=== PATIENT | female | born 1975 | race Caucasian/White ===

== ENCOUNTER 2020-04-15 19:05 | Observation (INO) | payer MEDICARE, MEDICAID, SELFPAY ==
[2020-04-15 19:11] VITALS: BP 160/94; PULSE 92; RESP 22; TEMP 36.7; O2SAT 99; BMI 47.0
--- NOTE | 2020-04-15 19:27 | ECG_ITS ---
Measurements Intervals [place] Rate: 88 P: 33 MT: 129 QRS: 49 QRSD: 81 T: 42 QT: 390 QTc: 473 SINUS RHYTHM POSSIBLE LEFT ATRIAL ENLARGEMENT [-0.1mV P WAVE IN V1/V2] LOW QRS VOLTAGE IN PRECORDIAL LEADS [QRS DEFLECTION < 1.0 mV IN CHEST LEADS] Compared to ECG 04/10/2019 12:39:39 Sinus tachycardia no longer present T-wave abnormality no longer present Electronically Signed On 04-16-2020 16:19:37 CDT by Amber Shah M.D. [email or web address]
--- NOTE | 2020-04-15 19:35 | ED_ITS ---
Documented by User: Latoya Traylor MD 04/15/20 23:35 HPI - Abdominal Pain General: Chief Complaint: Abdominal Pain Stated Complaint: rib pain Time Seen by Provider: 04/15/20 19:21 History of Present Illness: HPI narrative: Patient is a 44 year old female presenting with vomiting and diaphoresis all day today. She has had similar episodes in the past - but not so severe or prolonged and she has not had the sweating before. She has had diabetes but no longer is on medication due to a low carb diet. MD elicited complaint: abdominal pain Pertinent past history: gastritis Onset (ago): day(s) (1) Pain Consistency: intermittent Location: Epigastric Severity: severe Associated Symptoms: Reports nausea and vomiting; Denies chills, diarrhea and fever(s) Related Data: Date of Last Menstrual Period: 04/08/20 Review of Systems General: Reports: 10 or more systems reviewed and unremarkable except in HPI and below Const: Reports: fatigue, malaise, night sweats and diaphoresis; Denies: fever(s) or chills Card: Reports: pre-syncope; Denies: chest pain or palpitations Resp: Denies: dyspnea, productive cough or non-productive cough GI: Reports: abdominal pain, nausea and vomiting; Denies: diarrhea : Denies: difficulty voiding or urinary frequency Jakob/Lymph: Denies: easy bruising or easy bleeding PFSH ED PFSH: Family History Other Diabetes Heart disease Social History Smoking and tobacco status: former smoker Second hand smoke exposure: No Smoking risk assessment/counseling performed?: No Alcohol intake: current Alcohol intake frequency: holidays/special occasions only Desire information about alcohol rehabilitation?: No Counseling given: No Desire information about substance/drug rehabilitation?: No Counseling given: No Female Reproductive History: Date of last menstrual period: 04/08/20 Physical Exam Const: COMMON NORMALS: patient oriented x3 and alert GENERAL APPEARANCE: in distress and anxious NUTRITIONAL APPEARANCE: obese morbidly obese HENMT: HEAD & SCALP: normal to inspection FACE & SINUS: normal facial exam Neck/C-Spine: COMMON NORMALS: supple and no JVD Chest: COMMONS NORMALS: normal inspection of the chest Resp: COMMON NORMALS: normal respiratory effort, No retractions, No use of accessory muscles and clear to auscultation bilaterally AUSCULTATION: clear to auscultation bilaterally Cardio: COMMON NORMALS: no JVD, regular rate, regular rhythm and No murmurs present (Cardio) RATE: regular rate RHYTHM: regular rhythm GI: COMMON NORMALS: Normal to inspection, nondistended, normoactive bowel sounds present INSPECTION: Yes normal to inspection AUSCULTATION: Yes Hypoactive bowel sounds present PALPATION: Yes Tenderness to palpation present (GI) Details: RUQ and other (epigastric) Neuro: COMMON NORMALS: patient oriented x3 SENSORIUM/ORIENTATION: Yes alert Course ED course: Persistent vomiting - non-bloody. What she threw up in the ED was dark green and bilious. She has had her gallbladder out. Labs relatively unremarkable - mildly increased WBC count, low CO2. Failing to respond to meds for nausea. Was presyncopal on walking back to the room - had just vomited and this may have been vagal or related to dehydration. EKG unremarkable. CT pending and turned over the Dr. Romero. Vital Signs: Vital signs: Vital Signs Temperature 98.0 F 04/15/20 19:11 Pulse Rate 79 04/15/20 23:43 Respiratory Rate 16 04/15/20 23:43 Blood Pressure 150/64 04/15/20 23:43 Pulse Oximetry 98 04/15/20 23:43 MDM - Abdominal Pain Lab Data: Labs: Lab Results 04/15/20 04/15/20 04/15/20 Range/Units 20:09 20:09 20:09 WBC 13.3 H (4.0-10.0) 10^3/ uL RBC 4.90 (4.1-5.3) 10^6/u L Hgb 11.9 (11.5-15.3) g/dL Hct 39.7 (37.0-47.0) % MCV 81.0 (81-99) fL MCH 24.3 L (28.0-34.0) pg MCHC 30.0 (30.0-36.0) g/dL RDW 15.9 H (12.1-15.1) % Plt Count 417 H (130-400) 10^3/c mm MPV 11.0 H (7.4-10.4) fL Neut % (Auto) 88.1 % Lymph % (Auto) 8.5 % Glades % (Auto) 2.6 % Eos % (Auto) 0.1 % Baso % (Auto) 0.3 % Neut # (Auto) 11.7 H (1.8-7.7) 10^3/u L Lymph # (Auto) 1.1 (0.8-4.8) 10^3/u L Glades # (Auto) 0.4 (0.2-0.9) 10^3/u L Eos # (Auto) 0.0 (0.0-0.8) 10^3/u L Baso # (Auto) 0.0 (0.0-0.1) 10^3/u L Nucleated RBC % (a uto) 0 % Nucleated RBCs # 0.0 /100WBC Sodium 137 (136-145) mmol/L Potassium 4.4 (3.5-5.1) mmol/L Chloride 103 (98-107) mmol/L Carbon Dioxide 20 L (22-29) mmol/L Anion Gap 18.4 (5-19) BUN 14 (6-20) mg/dL Creatinine 0.8 (0.5-0.9) mg/dL GFR Calculation 77.6 L (90-130) mL/min Glucose 175 H (65-115) mg/dL Calculated Osmolal ity 284 L (285-295) mOsm/k g Calcium 9.4 (8.5-10.5) mg/dL Total Bilirubin 0.3 (0.15-1.2) mg/dL AST 15 (0-32) U/L ALT 14 (0-33) U/L Alkaline Phosphata se 92 (35-105) IU/L Troponin T Baselin e 6 (0-10) ng/mL Troponin T 120 Min [place] (0-10) ng/mL Delta Troponin T Total Protein 7.2 (6.6-8.7) g/dL Albumin 4.7 (3.5-5.2) g/dL Globulin 2.5 (1.3-4.6) g/dL Lipase 53 (13-60) U/L HCG, Qual (Negative) Urine Color (Yellow) Urine Appearance (CLEAR) Urine pH (5-7) Ur Specific Gravit y (1.005-1.030) Urine Protein (Negative) Urine Glucose (UA) (Normal) Urine Ketones (Negative) Urine Blood (Negative) Urine Nitrate (Negative) Urine Bilirubin (NEGATIVE) Urine Urobilinogen (Negative) mg/dL Ur Leukocyte Angelina ase (Negative) Urine RBC (0-2) /hpf Urine WBC (0-5) /hpf Ur Squamous Epith Cells (0-5) Urine Bacteria (NONE) 04/15/20 04/15/20 04/16/20 Range/Units 21:12 21:12 01:45 WBC (4.0-10.0) 10^3/ uL RBC (4.1-5.3) 10^6/u L Hgb (11.5-15.3) g/dL Hct (37.0-47.0) % MCV (81-99) fL MCH (28.0-34.0) pg MCHC (30.0-36.0) g/dL RDW (12.1-15.1) % Plt Count (130-400) 10^3/c mm MPV (7.4-10.4) fL Neut % (Auto) % Lymph % (Auto) % Glades % (Auto) % Eos % (Auto) % Baso % (Auto) % Neut # (Auto) (1.8-7.7) 10^3/u L Lymph # (Auto) (0.8-4.8) 10^3/u L Glades # (Auto) (0.2-0.9) 10^3/u L Eos # (Auto) (0.0-0.8) 10^3/u L Baso # (Auto) (0.0-0.1) 10^3/u L Nucleated RBC % (a uto) % Nucleated RBCs # /100WBC Sodium (136-145) mmol/L Potassium (3.5-5.1) mmol/L Chloride (98-107) mmol/L Carbon Dioxide (22-29) mmol/L Anion Gap (5-19) BUN (6-20) mg/dL Creatinine (0.5-0.9) mg/dL GFR Calculation (90-130) mL/min Glucose (65-115) mg/dL Calculated Osmolal ity (285-295) mOsm/k g Calcium (8.5-10.5) mg/dL Total Bilirubin (0.15-1.2) mg/dL AST (0-32) U/L ALT (0-33) U/L Alkaline Phosphata se (35-105) IU/L Troponin T Baselin e (0-10) ng/mL Troponin T 120 Min [place] 6.00 (0-10) ng/mL Delta Troponin T TNP Total Protein (6.6-8.7) g/dL Albumin (3.5-5.2) g/dL Globulin (1.3-4.6) g/dL Lipase (13-60) U/L HCG, Qual Negative (Negative) Urine Color Yellow (Yellow) Urine Appearance Cloudy (CLEAR) Urine pH 5 (5-7) Ur Specific Gravit y 1.025 (1.005-1.030) Urine Protein Neg (Negative) Urine Glucose (UA) Trace H (Normal) Urine Ketones 2+ H (Negative) Urine Blood Neg (Negative) Urine Nitrate Negative (Negative) Urine Bilirubin Neg (NEGATIVE) Urine Urobilinogen Norm (Negative) mg/dL Ur Leukocyte Angelina ase Negative (Negative) Urine RBC 0-4 H (0-2) /hpf Urine WBC 0-4 H (0-5) /hpf Ur Squamous Epith Cells 0-4 H (0-5) Urine Bacteria 1+ H (NONE) EKG Data ^: EKG 1: EKG interpretation date: 04/15/20 EKG interpretation time: 19:35 Interpretation: rate 88, NSR, low voltage, likely related to body habitus. Normal intervals and axis. Discharge Plan Discharge Patient Disposition: Placed in Observation Clinical Impression: Intractable vomiting Condition: Stable Prescriptions: No Action Contrave 8-90 mg tablet extended release 1 tab PO QAM RF: 0 fluticasone propionate 110 mcg/actuation HFA aerosol inhaler 2 puff INHALATION BID RF: 0 fluoxetine 40 mg capsule 40 mg PO DAILY RF: 0 furosemide 20 mg tablet 20 mg PO DAILY RF: 0 lisinopril 40 mg tablet 40 mg PO DAILY RF: 0 amlodipine [Norvasc] 2.5 mg tablet 2.5 mg PO DAILY RF: 0 albuterol sulfate [ProAir HFA] 90 mcg/actuation HFA aerosol inhaler 2 puff INHALATION Q4H PRNRF: 0 pantoprazole [Protonix] 20 mg tablet,delayed release (DR/EC) 20 mg PO BID RF: 0 Referrals: Anai Smith, LANDSCAPE ARCHITECTURE PROFESSOR-C [Primary Care Provider] - Sign Out Sign Out Data: Patient Sign Out occurred on 04/15/20 at 23:38. Patient's care was discussed, and care was transferred from to Khushbu Romero. Coding Level of Care Code ED Testing Lead for Chg Fwd Exam Detailed Documented by User: Khushbu Romero 04/16/20 02:48 HPI - Abdominal Pain General: Chief Complaint: Abdominal Pain Stated Complaint: rib pain Time Seen by Provider: 04/15/20 19:21 PFS ED PFSH: Family History Other Diabetes Heart disease Social History Smoking and tobacco status: former smoker Second hand smoke exposure: No Smoking risk assessment/counseling performed?: No Alcohol intake: current Alcohol intake frequency: holidays/special occasions only Desire information about alcohol rehabilitation?: No Counseling given: No Desire information about substance/drug rehabilitation?: No Counseling given: No Course Vital Signs: Vital signs: Vital Signs Temperature 98.0 F 04/15/20 19:11 Pulse Rate 79 04/15/20 23:43 Respiratory Rate 16 04/15/20 23:43 Blood Pressure 150/64 04/15/20 23:43 Pulse Oximetry 98 04/15/20 23:43 MDM - Abdominal Pain MDM Narrative: Medical decision making narrative: Iram is a nice 44-year-old female who comes in with nausea and vomiting. She has had multiple rounds of anti-medics here and is still nauseated and dry heaving. She will need to be admitted for IV hydration and further work-up. I reviewed the case in full with Dr. Green and he is agreeable to admission. Lab Data: Attestation: I reviewed the patient's lab results. Labs: Lab Results 04/15/20 04/15/20 04/15/20 Range/Units 20:09 20:09 20:09 WBC 13.3 H (4.0-10.0) 10^3/ uL RBC 4.90 (4.1-5.3) 10^6/u L Hgb 11.9 (11.5-15.3) g/dL Hct 39.7 (37.0-47.0) % MCV 81.0 (81-99) fL MCH 24.3 L (28.0-34.0) pg MCHC 30.0 (30.0-36.0) g/dL RDW 15.9 H (12.1-15.1) % Plt Count 417 H (130-400) 10^3/c mm MPV 11.0 H (7.4-10.4) fL Neut % (Auto) 88.1 % Lymph % (Auto) 8.5 % Glades % (Auto) 2.6 % Eos % (Auto) 0.1 % Baso % (Auto) 0.3 % Neut # (Auto) 11.7 H (1.8-7.7) 10^3/u L Lymph # (Auto) 1.1 (0.8-4.8) 10^3/u L [place]ades # (Auto) 0.4 (0.2-0.9) 10^3/u L Eos # (Auto) 0.0 (0.0-0.8) 10^3/u L Baso # (Auto) 0.0 (0.0-0.1) 10^3/u L Nucleated RBC % (a uto) 0 % Nucleated RBCs # 0.0 /100WBC Sodium 137 (136-145) mmol/L Potassium 4.4 (3.5-5.1) mmol/L Chloride 103 (98-107) mmol/L Carbon Dioxide 20 L (22-29) mmol/L Anion Gap 18.4 (5-19) BUN 14 (6-20) mg/dL Creatinine 0.8 (0.5-0.9) mg/dL GFR Calculation 77.6 L (90-130) mL/min Glucose 175 H (65-115) mg/dL Calculated Osmolal ity 284 L (285-295) mOsm/k g Calcium 9.4 (8.5-10.5) mg/dL Total Bilirubin 0.3 (0.15-1.2) mg/dL AST 15 (0-32) U/L ALT 14 (0-33) U/L Alkaline Phosphata se 92 (35-105) IU/L Troponin T Baselin e 6 (0-10) ng/mL Troponin T 120 Min [place] (0-10) ng/mL Delta Troponin T Total Protein 7.2 (6.6-8.7) g/dL Albumin 4.7 (3.5-5.2) g/dL Globulin 2.5 (1.3-4.6) g/dL Lipase 53 (13-60) U/L HCG, Qual (Negative) Urine Color (Yellow) Urine Appearance (CLEAR) Urine pH (5-7) Ur Specific Gravit y (1.005-1.030) Urine Protein (Negative) Urine Glucose (UA) (Normal) Urine Ketones (Negative) Urine Blood (Negative) Urine Nitrate (Negative) Urine Bilirubin (NEGATIVE) Urine Urobilinogen (Negative) mg/dL Ur Leukocyte Angelina ase (Negative) Urine RBC (0-2) /hpf Urine WBC (0-5) /hpf Ur Squamous Epith Cells (0-5) Urine Bacteria (NONE) 04/15/20 04/15/20 04/16/20 Range/Units 21:12 21:12 01:45 WBC (4.0-10.0) 10^3/ uL RBC (4.1-5.3) 10^6/u L Hgb (11.5-15.3) g/dL Hct (37.0-47.0) % MCV (81-99) fL MCH (28.0-34.0) pg MCHC (30.0-36.0) g/dL RDW (12.1-15.1) % Plt Count (130-400) 10^3/c mm MPV (7.4-10.4) fL Neut % (Auto) % Lymph % (Auto) % [place] % (Auto) % Eos % (Auto) % Baso % (Auto) % Neut # (Auto) (1.8-7.7) 10^3/u L Lymph # (Auto) (0.8-4.8) 10^3/u L [place]ades # (Auto) (0.2-0.9) 10^3/u L Eos # (Auto) (0.0-0.8) 10^3/u L Baso # (Auto) (0.0-0.1) 10^3/u L Nucleated RBC % (a uto) % Nucleated RBCs # /100WBC Sodium (136-145) mmol/L Potassium (3.5-5.1) mmol/L Chloride (98-107) mmol/L Carbon Dioxide (22-29) mmol/L Anion Gap (5-19) BUN (6-20) mg/dL Creatinine (0.5-0.9) mg/dL GFR Calculation (90-130) mL/min Glucose (65-115) mg/dL Calculated Osmolal ity (285-295) mOsm/k g Calcium (8.5-10.5) mg/dL Total Bilirubin (0.15-1.2) mg/dL AST (0-32) U/L ALT (0-33) U/L Alkaline Phosphata se (35-105) IU/L Troponin T Baselin e (0-10) ng/mL Troponin T 120 Min [place] 6.00 (0-10) ng/mL Delta Troponin T TNP Total Protein (6.6-8.7) g/dL Albumin (3.5-5.2) g/dL Globulin (1.3-4.6) g/dL Lipase (13-60) U/L HCG, Qual Negative (Negative) Urine Color Yellow (Yellow) Urine Appearance Cloudy (CLEAR) Urine pH 5 (5-7) Ur Specific Gravit y 1.025 (1.005-1.030) Urine Protein Neg (Negative) Urine Glucose (UA) Trace H (Normal) Urine Ketones 2+ H (Negative) Urine Blood Neg (Negative) Urine Nitrate Negative (Negative) Urine Bilirubin Neg (NEGATIVE) Urine Urobilinogen Norm (Negative) mg/dL Ur Leukocyte Angelina ase Negative (Negative) Urine RBC 0-4 H (0-2) /hpf Urine WBC 0-4 H (0-5) /hpf Ur Squamous Epith Cells 0-4 H (0-5) Urine Bacteria 1+ H (NONE) Imaging Data ^: CT Abd/Pel: Radiologist's impression: [address] [address] [address] Scan Report Signed Patient: Iram Centeno Unit #: [id number] : 1975 [id number] Age/Sex: 44 / F ADM Date: 04/15/20 Loc: ER Room/Bed: Attending Dr: Ordering Provider/Ordering MD: Khushbu Romero DO Date of Service: 04/16/20 Procedure(s): CT abdomen pelvis wo con [id number] Accession Number(s): [id number] Report Number: [id number] PROCEDURE INFORMATION: Exam: CT Abdomen And Pelvis Without Contrast Exam date and time: 04/16/2020 12:45 AM Age: 44 years old Clinical indication: Nausea and vomiting; Abdominal pain; Generalized; Prior surgery; Surgery type: Btl, cholecystectomy; Additional info: Abd pain, n/v TECHNIQUE: Imaging protocol: Computed tomography of the abdomen and pelvis without contrast. Radiation optimization: All CT scans at this facility use at least one of these dose optimization techniques: automated exposure control; mA and/or kV adjustment per patient size (includes targeted exams where dose is matched to clinical indication); or iterative reconstruction. COMPARISON: CT abdomen pelvis wo con [id number] 04/10/2019 5:03 PM RADIATION DOSE METRICS: Total DLP: 1922.4 mGy-cm FINDINGS: Lungs: Stable 5 mm nodule in the right lower lobe. This is also unchanged from exam of 07/19/2018. (For patients at low risk (minimal or absent history of smoking and of other known risk factors), no routine follow-up is indicated. For patients at high risk (history of smoking or of other known risk factors), consider optional CT at 12 months. (Tonja et al., Fleischner Society, 2017) Therefore, lack of significant change management consultant a 21 month interval would suggest a benign finding. No further follow-up needed. The lung bases otherwise appear essentially clear. Mediastinum: Small hiatal hernia. Liver: Unremarkable. Gallbladder and bile ducts: Prior cholecystectomy, no significant biliary tree dilation. Pancreas: Unremarkable. Spleen: Unremarkable. Adrenals: Unremarkable. Kidneys and ureters: No hydronephrosis of either kidney. No visible renal or ureteral calculus. Stomach and bowel: Possibility of slightly thickened mucosa/wall in the distal antrum of the stomach. This is a nonspecific appearance, and may well be transient on CT, but could also represent evidence for gastritis or peptic ulcer disease. Please correlate clinically. Possibility of mild mucosal/wall thickening involving portions of the colon, most notable in the hepatic flexure and transverse colon, and portions of the descending and sigmoid. These regions of the colon are not well distended which limits evaluation. Therefore, the findings could be transient, and are somewhat equivocal at this time. While nonspecific, this appearance may be secondary to some form of colitis. Please correlate clinically. There are no CT findings to strongly suggest diverticulitis. Appendix: The appendix is visualized and appears normal. Intraperitoneal space: No free air, ascites, or bowel distention. Vasculature: No evidence for abdominal aortic aneurysm. Lymph nodes: No retroperitoneal adenopathy. Bladder: Unremarkable as visualized. Reproductive: Essentially unremarkable for age. Bones/joints: Moderate degenerative disc changes in the lower lumbar spine. Soft tissues: Small umbilical hernia, containing only fat. Small left femoral region hernia, not significantly changed, containing only fat. CT/CT abdomen pelvis wo con [id number] IMPRESSION: 1. Possibility of mild colitis, see above discussion. 2. No free air or bowel distention. No evidence for bowel obstruction. 3. Normal appendix. 4. Possible thickened mucosa/wall in the distal stomach, see above discussion. 5. Other findings discussed above. Radiation Dose CTDIVOL = (mGy): DLP = 1922.4 (mGy-cm) Dictated By: Colten Valenzuela MD Signed By: Colten Valenzuela MD Signed Date/Time: 04/16/20144 DD/ 3 Discharge Plan Discharge Patient Disposition: Placed in Observation Clinical Impression: Intractable vomiting Condition: Stable Prescriptions: No Action Contrave 8-90 mg tablet extended release 1 tab PO QAM RF: 0 fluticasone propionate 110 mcg/actuation HFA aerosol inhaler 2 puff INHALATION BID RF: 0 fluoxetine 40 mg capsule 40 mg PO DAILY RF: 0 furosemide 20 mg tablet 20 mg PO DAILY RF: 0 lisinopril 40 mg tablet 40 mg PO DAILY RF: 0 amlodipine [Norvasc] 2.5 mg tablet 2.5 mg PO DAILY RF: 0 albuterol sulfate [ProAir HFA] 90 mcg/actuation HFA aerosol inhaler 2 puff INHALATION Q4H PRNRF: 0 pantoprazole [Protonix] 20 mg tablet,delayed release (DR/EC) 20 mg PO BID RF: 0 Referrals: Anai Smith, LANDSCAPE ARCHITECTURE PROFESSOR-C [Primary Care Provider] - Sign Out Sign Out Data: Patient Sign Out occurred on 04/15/20 at 23:38. Patient's care was discussed, and care was transferred from to [facility]. Coding Level of Care Code ED Testing Lead for Chg Fwd Exam Detailed
[2020-04-15 20:21] LABS: Basophils % 0.3 %; Eosinophils % 0.1 %; Hematocrit 39.7 % (37.0-47.0); Hemoglobin 11.9 g/dL (11.5-15.3); Lymphocytes # 1.1 10^3/uL (0.8-4.8); Lymphocytes % 8.5 %; Mean Corpuscular Hemoglobin 24.3 pg (28.0-34.0); Monocytes # 0.4 10^3/uL (0.2-0.9); Monocytes % 2.6 %; Neutrophils # 11.7 10^3/uL (1.8-7.7); Neutrophils % 88.1 %; Nucleated Red Blood Cells % 0 %; Platelet Count 417 10^3/cmm (130-400); Red Cell Distribution Width 15.9 % (12.1-15.1); White Blood Count 13.3 10^3/uL (4.0-10.0)
[2020-04-15] MEDS: ondansetron 2 mg/ML SDV 2 mL 4 MG IVP (20:23)
[2020-04-15] MEDS: sodium chloride 0.9% 1,000 ML 999 ML IV ×2 (20:30→23:26)
[2020-04-15] MEDS: famotidine 20 mg/2 mL INJ 40 MG IVP (20:30)
--- NOTE | 2020-04-15 20:44 | PC.NURSE ---
Gave zofran and pepcid 10 minutes ago, pt states she feels nauseated, advised I would check on her in 30 minutes.
[2020-04-15 20:50] LABS: Alanine Aminotransferase 14 U/L (0-33); Albumin Level 4.7 g/dL (3.5-5.2); Alkaline Phosphatase 92 IU/L (35-105); Anion Gap 18.4 (5-19); Aspartate Amino Transferase 15 U/L (0-32); Blood Urea Nitrogen 14 mg/dL (6-20); Calcium 9.4 mg/dL (8.5-10.5); Carbon Dioxide 20 mmol/L (22-29); Chloride 103 mmol/L (98-107); Globulin 2.5 g/dL (1.3-4.6); Glomerular Filtration Rate 77.6 mL/min (90-130); Glucose 175 mg/dL (65-115); Lipase 53 U/L (13-60); Osmolality Calculated 284 mOsm/kg (285-295); Potassium 4.4 mmol/L (3.5-5.1); Sodium 137 mmol/L (136-145); Total Bilirubin 0.3 mg/dL (0.15-1.2); Total Protein 7.2 g/dL (6.6-8.7)
[2020-04-15] MEDS: promethazine 25 mg/mL SDV 1 mL IM (21:16)
[2020-04-15 21:29] VITALS: BP 180/83; PULSE 78; RESP 16; O2SAT 98
[2020-04-15 21:31] LABS: HCG Qualitative Urine. Negative (Negative)
[2020-04-15] MEDS: metoclopramide 5 mg/mL SDV 2 mL IVP (23:36)
[2020-04-15 23:42] LABS: Bilirubin Urine Neg (NEGATIVE); Blood Urine Neg (Negative); Glucose Urine UA Trace (Normal); Ketones Urine 2+ (Negative); Nitrate Urine Negative (Negative); Protein Urine Neg (Negative); Specific Gravity, Urine 1.025 (1.005-1.030); Urine Appearance Cloudy (CLEAR); Urine Color Yellow (Yellow); Urobilinogen Urine Norm (Negative); pH Urine 5 (5-7)
[2020-04-15 23:43] VITALS: BP 150/64; PULSE 79; RESP 16; O2SAT 98
[2020-04-15 23:43] LABS: Add Urine Microscopic? YES; Bacteria Urine 1+; Leukocyte Esterase Urine Negative (Negative); RBC Urine 0-4 /hpf (0-2); Squamous Epithelial Cell Urine 0-4 (0-5); WBC Urine 0-4 /hpf (0-5)
[2020-04-16] VITALS (11 sets, daily range): BP systolic 118–174; BP diastolic 74–112; PULSE 80–94; RESP 15–22; TEMP 36.4–36.8; O2SAT 96–99
--- NOTE | 2020-04-16 00:44 | CTR_ITS ---
PROCEDURE INFORMATION: Exam: CT Abdomen And Pelvis Without Contrast Exam date and time: 04/16/2020 12:45 AM Age: 44 years old Clinical indication: Nausea and vomiting; Abdominal pain; Generalized; Prior surgery; Surgery type: Btl, cholecystectomy; Additional info: Abd pain, n/v TECHNIQUE: Imaging protocol: Computed tomography of the abdomen and pelvis without contrast. Radiation optimization: All CT scans at this facility use at least one of these dose optimization techniques: automated exposure control; mA and/or kV adjustment per patient size (includes targeted exams where dose is matched to clinical indication); or iterative reconstruction. COMPARISON: CT abdomen pelvis wo con [id number] 04/10/2019 5:03 PM RADIATION DOSE METRICS: Total DLP: 1922.4 mGy-cm FINDINGS: Lungs: Stable 5 mm nodule in the right lower lobe. This is also unchanged from exam of 07/19/2018. (For patients at low risk (minimal or absent history of smoking and of other known risk factors), no routine follow-up is indicated. For patients at high risk (history of smoking or of other known risk factors), consider optional CT at 12 months. (Tonja et al., Fleischner Society, 2017) Therefore, lack of significant change attendant a 21 month interval would suggest a benign finding. No further follow-up needed. The lung bases otherwise appear essentially clear. Mediastinum: Small hiatal hernia. Liver: Unremarkable. Gallbladder and bile ducts: Prior cholecystectomy, no significant biliary tree dilation. Pancreas: Unremarkable. Spleen: Unremarkable. Adrenals: Unremarkable. Kidneys and ureters: No hydronephrosis of either kidney. No visible renal or ureteral calculus. Stomach and bowel: Possibility of slightly thickened mucosa/wall in the distal antrum of the stomach. This is a nonspecific appearance, and may well be transient on CT, but could also represent evidence for gastritis or peptic ulcer disease. Please correlate clinically. Possibility of mild mucosal/wall thickening involving portions of the colon, most notable in the hepatic flexure and transverse colon, and portions of the descending and sigmoid. These regions of the colon are not well distended which limits evaluation. Therefore, the findings could be transient, and are somewhat equivocal at this time. While nonspecific, this appearance may be secondary to some form of colitis. Please correlate clinically. There are no CT findings to strongly suggest diverticulitis. Appendix: The appendix is visualized and appears normal. Intraperitoneal space: No free air, ascites, or bowel distention. Vasculature: No evidence for abdominal aortic aneurysm. Lymph nodes: No retroperitoneal adenopathy. Bladder: Unremarkable as visualized. Reproductive: Essentially unremarkable for age. Bones/joints: Moderate degenerative disc changes in the lower lumbar spine. Soft tissues: Small umbilical hernia, containing only fat. Small left femoral region hernia, not significantly changed, containing only fat. CT/CT abdomen pelvis wo con [id number] IMPRESSION: 1. Possibility of mild colitis, see above discussion. 2. No free air or bowel distention. No evidence for bowel obstruction. 3. Normal appendix. 4. Possible thickened mucosa/wall in the distal stomach, see above discussion. 5. Other findings discussed above. Radiation Dose CTDIVOL = (mGy): DLP = 1922.4 (mGy-cm)
--- NOTE | 2020-04-16 01:16 | PC.NURSE ---
Patient to CT via stretcher and returned at this time.
[2020-04-16 02:03] LABS: Troponin(5th) Baseline 6 ng/mL (0-10)
[2020-04-16] MEDS: haloperidol inj 5 mg/mL INJ 1 mL 2 MG IVP (02:04)
[2020-04-16] MEDS: piperacillin-tazobactam 3.375 GM in sodium chloride 0.9% (plus) 50 ML IV (02:43)
--- NOTE | 2020-04-16 03:00 | ECG_ITS ---
Measurements Intervals [place] Rate: 75 P: 46 FL: 133 QRS: 61 QRSD: 84 T: 49 QT: 434 QTc: 486 SINUS RHYTHM LOW QRS VOLTAGE IN PRECORDIAL LEADS [QRS DEFLECTION < 1.0 mV IN CHEST LEADS] Compared to ECG 04/10/2019 12:39:39 Sinus tachycardia no longer present T-wave abnormality no longer present Electronically Signed On 04-16-2020 16:27:13 CDT by Amber Shah M.D. [email or web address]
--- NOTE | 2020-04-16 03:36 | PM.HP ---
Providers/Chief Complaint Admitting Physician: Rambo Christine Primary Care Provider: SRIKANTH Urrutia Chief Complaint: INTRACTABLE VOMITING History of Present Illness Iram Centeno is a 44 year old female presents with complaints of nausea and vomiting since yesterday. She reports multiple episodes. Denies hematemesis. Denies abdominal pain or diarrhea. No fever or chills. She reports similar episodes in the past. No chest pain, shortness of breath, cough, palpitations. No runny nose or sore throat. No muscle aches. The patient denies alcohol. Occasionally uses marijuana. She is ex-smoker. Quit several months ago Past medical history significant for GERD, hypertension, COPD, diabetes. Review of Systems General: Reports: 10 or more systems reviewed and unremarkable except in HPI and below Medications/Allergies Home Medications Medication Instructions Recorded Confirmed Last Taken Type albuterol sulfate 90 mcg/actuation 2 puff INHALATION Q4H PRN gm 02/10/20 02/10/20 Unknown History aerosol inhaler amlodipine 2.5 mg tablet 2.5 mg PO DAILY 02/10/20 02/10/20 Unknown History fluoxetine 40 mg capsule 40 mg PO DAILY 02/10/20 02/10/20 Unknown History fluticasone propionate 110 2 puff INHALATION BID 02/10/20 02/10/20 Unknown History mcg/actuation HFA aerosol inhaler furosemide 20 mg tablet 20 mg PO DAILY 02/10/20 02/10/20 Unknown History lisinopril 40 mg tablet 40 mg PO DAILY 02/10/20 02/10/20 Unknown History naltrexone 8 mg-bupropion 90 mg 1 tab PO QAM 02/10/20 02/10/20 Unknown History tablet,extended release pantoprazole 20 mg tablet,delayed 20 mg PO BID tab 02/10/20 02/10/20 Unknown History release Allergies Allergy/AdvReac Type Severity Reaction Status Date / Time aspirin Allergy Unknown Verified 02/10/20 16:40 nitrofurantoin Allergy Unknown Verified 02/10/20 16:40 [From Macrobid] PFSH Acute PFSH: Family History Other Diabetes Heart disease Social History Smoking and tobacco status: former smoker Second hand smoke exposure: No Smoking risk assessment/counseling performed?: No Alcohol intake: current Alcohol intake frequency: holidays/special occasions only Desire information about alcohol rehabilitation?: No Counseling given: No Desire information about substance/drug rehabilitation?: No Counseling given: No Female Reproductive History: Date of last menstrual period: 04/08/20 Vitals/I&O/Wt Last Vital Signs Temp 98.0 F 04/15/20 19:11 Pulse 88 04/16/20 03:27 Resp 18 04/16/20 03:27 BP 168/88 04/16/20 03:27 Pulse Ox 97 04/16/20 03:27 04/15/20 04/15/20 04/16/20 14:59 22:59 06:59 Intake Total 1000 / 1000 Balance 1000 / 1000 Weight last 48 hrs Weight 136.078 kg Physical Exam Narrative: EXAM NARRATIVE: Currently the patient is awake alert and oriented. No acute distress. Mood and affect are appropriate. Responses are adequate. Skin is warm and dry. Dry mucous membranes. Eyes Branden, extraocular muscles intact. Neck supple. No JVD Lungs clear bilaterally. No respiratory distress Heart S1, S2, regular Abdomen is soft, obese, nontender, bowel sounds are present. Negative Olivares sign. Extremities trace pedal edema. No cyanosis no calf tenderness bilaterally. Neuro examination is nonfocal. Data : 04/15/20 20:09 04/15/20 20:09 A&P Additional A&P Information 44-year-old female with past medical history of diabetes, hypertension, regular marijuana use, COPD who presents with complaints of intractable vomiting since yesterday. She has evidence of dehydration. Most likely her vomiting is due to [place]. However gastroparesis is also possible. Vomiting. Will provide Zofran and Phenergan as needed. If it persists we will also try Reglan. Dehydration. IV fluids with normal saline at 75 cc/h. Will reassess her hydration status in the morning and adjust the fluid rate. Diabetes. I will check her A1c level. I will order insulin sliding scale for her. Leukocytosis. Could be secondary to vomiting and associated stress. We will recheck it in the morning. Hypertension. PRN hydralazine. History of GERD. I will order IV PPI. DVT prophylaxis Lovenox. CODE STATUS. The patient wants to be full code. The plan of care was discussed with the patient. She verbalized understanding and agreement. Attestations Medical Necessity Statement*: Observation Coding Level of Care Code Acute Dog Behaviorist for Stef Esqueda
[2020-04-16] MEDS: sodium chloride 0.9% 1,000 ML 100 ML IV (03:45)
[2020-04-16] MEDS: enoxaparin 40 mg/0.4 mL Syringe SUBCUT (03:49)
[2020-04-16] MEDS: sodium chloride 0.9% 1,000 ML 75 ML IV (03:50)
[2020-04-16 06:00] LABS: Basophils # 0.1 10^3/uL (0.0-0.1); Basophils % 0.4 %; Eosinophils % 0.1 %; Hematocrit 38.1 % (37.0-47.0); Hemoglobin 11.3 g/dL (11.5-15.3); Lymphocytes % 19.9 %; Mean Corpuscular HGB Conc 29.7 g/dL (30.0-36.0); Mean Corpuscular Hemoglobin 24.1 pg (28.0-34.0); Mean Corpuscular Volume 81.2 fL (81-99); Mean Platelet Volume 10.9 fL (7.4-10.4); Monocytes # 1.3 10^3/uL (0.2-0.9); Monocytes % 8.7 %; Neutrophils # 10.5 10^3/uL (1.8-7.7); Neutrophils % 70.5 %; Nucleated Red Blood Cells % 0 %; Platelet Count 353 10^3/cmm (130-400); Red Blood Count 4.69 10^6/uL (4.1-5.3); Red Cell Distribution Width 15.9 % (12.1-15.1); White Blood Count 14.9 10^3/uL (4.0-10.0)
[2020-04-16 06:11] LABS: Anion Gap 16.7 (5-19); Blood Urea Nitrogen 13 mg/dL (6-20); Calcium 9.4 mg/dL (8.5-10.5); Carbon Dioxide 22 mmol/L (22-29); Chloride 107 mmol/L (98-107); Glomerular Filtration Rate 90.5 mL/min (90-130); Glucose 129 mg/dL (65-115); Magnesium 2.1 mg/dL (1.7-2.3); Osmolality Calculated 292 mOsm/kg (285-295); Phosphorus 3.4 mg/dL (2.5-4.5); Potassium 3.7 mmol/L (3.5-5.1); Sodium 142 mmol/L (136-145)
[2020-04-16] MEDS: acetaminophen 325 mg Tablet 650 MG PO (06:44)
[2020-04-16 06:50] LABS: Glucose Point of Care 123 mg/dL (70-110)
--- NOTE | 2020-04-16 07:00 | ECG_ITS ---
Measurements Intervals [place] Rate: 89 P: 37 [place]: 130 QRS: 51 QRSD: 85 T: 33 QT: 400 QTc: 487 SINUS RHYTHM LOW QRS VOLTAGE IN PRECORDIAL LEADS [QRS DEFLECTION < 1.0 mV IN CHEST LEADS] Compared to ECG 04/10/2019 12:39:39 Sinus tachycardia no longer present T-wave abnormality no longer present Electronically Signed On 04-16-2020 16:26:17 CDT by Amber Shah M.D. [email or web address]
[2020-04-16] MEDS: pantoprazole 40 mg SDV IVP (09:02)
[2020-04-16 09:29] LABS: Troponin 5 6HR Delta 0 ng/L (0-12)
[2020-04-16 11:26] LABS: Glucose Point of Care 106 mg/dL (70-110)
[2020-04-16 12:01] LABS: Amphetamines Screen Urine Negative (Negative); Barbiturates Screen Urine Negative (Negative); Benzodiazepines Screen Urine Positive (Negative); Cocaine Screen Urine Negative (Negative); Opiate Screen Urine Negative (Negative); PCP Screen Urine Negative (Negative); THC Screen Urine Positive (Negative)
--- NOTE | 2020-04-16 13:43 | PC.RESP ---
Pulmonary Rehab information provided top patient.
--- NOTE | 2020-04-16 14:27 | P.DS_ITS ---
Discharge Providers Date of Admission: 04/16/20 02:44 Date of Discharge: April 16, 2020 Attending Provider at Admission: Rambo Christine Attending Provider at Discharge: Viktoria Baltazar MD Primary Care Provider: SRIKANTH Urrutia Diagnoses at Discharge Discharge Diagnosis (1) Intractable vomiting: Status: Acute Qualifiers: Nausea presence: with nausea Vomiting type: unspecified Qualified Code(s): R11.2 - Nausea with vomiting, unspecified (2) Perimenopausal: Status: Acute Reason for Visit Reason for Visit: Reason For Visit: INTRACTABLE VOMITING Hospital Course Hospital Course: Patient was admitted with intractable vomiting. It was associated with diaphoresis. She states that this is happened several times and she attributes it to perimenopausal status. She denied any chest pain. She denied any symptoms like this with exertion. She denied any recent medication changes. Not too long after arriving to the floor she was feeling much better. She was wanting to be discharged home. She had tolerated clear liquids. I watched her until lunchtime to make sure she did not have any recurrent symptoms. Repeat electrolytes showed improvement with some fluids. She did have some leukocytosis but review of old records indicates that this is not a new finding. All values going back to March of last year or elevated. Would probably benefit from some work-up on an outpatient basis regarding this, particularly with her report of significant night sweats and such. She denies weight loss or fevers. CT of the abdomen showed a possibility of mild colitis and possible thickened mucosa in the distal stomach but was otherwise unremarkable. Recommended patient follow-up with her primary care provider and return should she have any recurrent symptoms. I did not make any medication changes for her. Physical Exam Narrative: EXAM NARRATIVE: No acute distress, not ill-appearing, obese, no vomiting, regular rhythm, clear lungs Discharge Data Data Completed and Pending: Completed Studies During Hospitalization Category Date Time Status CT abdomen pelvis wo con [id number] Urge nt Cat Scan 04/16/20 00:44 Completed Pending at discharge Category Date Time Status Basic Metabolic P alvarado AM LABS Lab 04/17/20 04:00 Ordered Complete Blood Co unt w/Auto AM LABS Lab 04/17/20 04:00 Ordered Labs from last 24 hours 04/16/20 04/16/20 04/16/20 11:22 09:30 06:46 WBC RBC Hgb Hct MCV MCH MCHC RDW Plt Count MPV Neut % (Auto) Lymph % (Auto) [place] % (Auto) Eos % (Auto) Baso % (Auto) Neut # (Auto) Lymph # (Auto) [place] # (Auto) Eos # (Auto) Baso # (Auto) Nucleated RBC % (a uto) Nucleated RBCs # Sodium Potassium Chloride Carbon Dioxide Anion Gap BUN Creatinine GFR Calculation Glucose POC Glucose 106 123 Calculated Osmolal ity Calcium Phosphorus Magnesium Total Bilirubin AST ALT Alkaline Phosphata se Troponin I 6 Hour Troponin I Hi Sens Del Troponin T Baselin e Troponin T 120 Min [place] Troponin T Total Protein Albumin Globulin Lipase HCG, Qual Urine Color Urine Appearance Urine pH Ur Specific Gravit y Urine Protein Urine Glucose (UA) Urine Ketones Urine Blood Urine Nitrate Urine Bilirubin Urine Urobilinogen Ur Leukocyte Angelina ase Urine RBC Urine WBC Ur Squamous Epith Cells Urine Bacteria Urine Opiates Scre en Negative Ur Barbiturates Sc reen Negative Ur Phencyclidine S crn Negative Ur Amphetamines Sc reen Negative U Benzodiazepines Scrn Positive H Urine Cocaine Scre en Negative U Marijuana (THC) Screen Positive H 04/16/20 04/16/20 04/16/20 05:36 05:36 05:36 WBC 14.9 H RBC 4.69 Hgb 11.3 L Hct 38.1 MCV 81.2 MCH 24.1 L MCHC 29.7 L RDW 15.9 H Plt Count 353 MPV 10.9 H Neut % (Auto) 70.5 Lymph % (Auto) 19.9 [place] % (Auto) 8.7 Eos % (Auto) 0.1 Baso % (Auto) 0.4 Neut # (Auto) 10.5 H Lymph # (Auto) 3.0 [place] # (Auto) 1.3 H Eos # (Auto) 0.0 Baso # (Auto) 0.1 Nucleated RBC % (a uto) 0 Nucleated RBCs # 0.0 Sodium 142 Potassium 3.7 Chloride 107 Carbon Dioxide 22 Anion Gap 16.7 BUN 13 Creatinine 0.7 GFR Calculation 90.5 Glucose 129 H POC Glucose Calculated Osmolal ity 292 Calcium 9.4 Phosphorus 3.4 Magnesium 2.1 Total Bilirubin AST ALT Alkaline Phosphata se Troponin I 6 Hour Troponin I Hi Sens Del Troponin T Baselin e Troponin T 120 Min [place] Troponin T Total Protein Albumin Globulin Lipase HCG, Qual Urine Color Urine Appearance Urine pH Ur Specific Gravit y Urine Protein Urine Glucose (UA) Urine Ketones Urine Blood Urine Nitrate Urine Bilirubin Urine Urobilinogen Ur Leukocyte Angelina ase Urine RBC Urine WBC Ur Squamous Epith Cells Urine Bacteria Urine Opiates Scre en Ur Barbiturates Sc reen Ur Phencyclidine S crn Ur Amphetamines Sc reen U Benzodiazepines Scrn Urine Cocaine Scre en U Marijuana (THC) Screen 04/16/20 04/16/20 04/15/20 05:36 01:45 21:12 WBC RBC Hgb Hct MCV MCH MCHC RDW Plt Count MPV Neut % (Auto) Lymph % (Auto) [place] % (Auto) Eos % (Auto) Baso % (Auto) Neut # (Auto) Lymph # (Auto) [place] # (Auto) Eos # (Auto) Baso # (Auto) Nucleated RBC % (a uto) Nucleated RBCs # Sodium Potassium Chloride Carbon Dioxide Anion Gap BUN Creatinine GFR Calculation Glucose POC Glucose Calculated Osmolal ity Calcium Phosphorus Magnesium Total Bilirubin AST ALT Alkaline Phosphata se Troponin I 6 Hour 6.00 Troponin I Hi Sens Del 0 Troponin T Baselin e Troponin T 120 Min [place] 6.00 Delta Troponin T TNP Total Protein Albumin Globulin Lipase HCG, Qual Urine Color Yellow Urine Appearance Cloudy Urine pH 5 Ur Specific Gravit y 1.025 Urine Protein Neg Urine Glucose (UA) Trace H Urine Ketones 2+ H Urine Blood Neg Urine Nitrate Negative Urine Bilirubin Neg Urine Urobilinogen Norm Ur Leukocyte Angelina ase Negative Urine RBC 0-4 H Urine WBC 0-4 H Ur Squamous Epith Cells 0-4 H Urine Bacteria 1+ H Urine Opiates Scre en Ur Barbiturates Sc reen Ur Phencyclidine S crn Ur Amphetamines Sc reen U Benzodiazepines Scrn Urine Cocaine Scre en U Marijuana (THC) Screen 04/15/20 04/15/20 04/15/20 21:12 20:09 20:09 WBC RBC Hgb Hct MCV MCH MCHC RDW Plt Count MPV Neut % (Auto) Lymph % (Auto) [place] % (Auto) Eos % (Auto) Baso % (Auto) Neut # (Auto) Lymph # (Auto) [place] # (Auto) Eos # (Auto) Baso # (Auto) Nucleated RBC % (a uto) Nucleated RBCs # Sodium 137 Potassium 4.4 Chloride 103 Carbon Dioxide 20 L Anion Gap 18.4 BUN 14 Creatinine 0.8 GFR Calculation 77.6 L Glucose 175 H POC Glucose Calculated Osmolal ity 284 L Calcium 9.4 Phosphorus Magnesium Total Bilirubin 0.3 AST 15 ALT 14 Alkaline Phosphata se 92 Troponin I 6 Hour Troponin I Hi Sens Del Troponin T Baselin e 6 Troponin T 120 Min [place] Delta Troponin T Total Protein 7.2 Albumin 4.7 Globulin 2.5 Lipase 53 HCG, Qual Negative Urine Color Urine Appearance Urine pH Ur Specific Gravit y Urine Protein Urine Glucose (UA) Urine Ketones Urine Blood Urine Nitrate Urine Bilirubin Urine Urobilinogen Ur Leukocyte Angelina ase Urine RBC Urine WBC Ur Squamous Epith Cells Urine Bacteria Urine Opiates Scre en Ur Barbiturates Sc reen Ur Phencyclidine S crn Ur Amphetamines Sc reen U Benzodiazepines Scrn Urine Cocaine Scre en U Marijuana (THC) Screen 04/15/20 20:09 WBC 13.3 H RBC 4.90 Hgb 11.9 Hct 39.7 MCV 81.0 MCH 24.3 L MCHC 30.0 RDW 15.9 H Plt Count 417 H MPV 11.0 H Neut % (Auto) 88.1 Lymph % (Auto) 8.5 [place] % (Auto) 2.6 Eos % (Auto) 0.1 Baso % (Auto) 0.3 Neut # (Auto) 11.7 H Lymph # (Auto) 1.1 [place] # (Auto) 0.4 Eos # (Auto) 0.0 Baso # (Auto) 0.0 Nucleated RBC % (a uto) 0 Nucleated RBCs # 0.0 Sodium Potassium Chloride Carbon Dioxide Anion Gap BUN Creatinine GFR Calculation Glucose POC Glucose Calculated Osmolal ity Calcium Phosphorus Magnesium Total Bilirubin AST ALT Alkaline Phosphata se Troponin I 6 Hour Troponin I Hi Sens Del Troponin T Baselin e Troponin T 120 Min [place] Troponin T Total Protein Albumin Globulin Lipase HCG, Qual Urine Color Urine Appearance Urine pH Ur Specific Gravit y Urine Protein Urine Glucose (UA) Urine Ketones Urine Blood Urine Nitrate Urine Bilirubin Urine Urobilinogen Ur Leukocyte Angelina ase Urine RBC Urine WBC Ur Squamous Epith Cells Urine Bacteria Urine Opiates Scre en Ur Barbiturates Sc reen Ur Phencyclidine S crn Ur Amphetamines Sc reen U Benzodiazepines Scrn Urine Cocaine Scre en U Marijuana (THC) Screen Vitals: Last Vital Signs Temp 98.2 F 04/16/20 11:52 Pulse 89 04/16/20 11:52 Resp 18 04/16/20 11:52 BP 155/106 05/16/20 11:52 Pulse Ox 96 04/16/20 11:52 Discharge Plan Discharge Patient Disposition: Home, Self-Care Condition: Stable Prescriptions: Continued Contrave 8-90 mg tablet extended release 1 tab PO QAM RF: 0 fluticasone propionate 110 mcg/actuation HFA aerosol inhaler 2 puff INHALATION BID PRN (Reason: Shortness Of Breath) RF: 0 fluoxetine 40 mg capsule 40 mg PO DAILY RF: 0 furosemide 20 mg tablet 20 mg PO DAILY RF: 0 lisinopril 40 mg tablet 40 mg PO DAILY RF: 0 amlodipine [Norvasc] 2.5 mg tablet 2.5 mg PO DAILY RF: 0 albuterol sulfate [ProAir HFA] 90 mcg/actuation HFA aerosol inhaler 1 - 2 puff INHALATION Q4H PRN (Reason: Shortness Of Breath) RF: 0 pantoprazole [Protonix] 20 mg tablet,delayed release (DR/EC) 20 mg PO BID RF: 0 Discharge Orders: Discharge Order (Routine); Ordered 04/16/20 Ordered By: Viktoria Baltazar Referrals: Anai Smith FNP-C [Primary Care Provider] - 4-7 days (Clinics are closed today. You will need to call Saturday and make a hospital follow up appointment with Anai Smith in 4-7 days.) Discharge Diet: Advance as tolerated Discharge Activity: Resume usual activity Patient Instructions: Acute Nausea and Vomiting (DC) Discharge Date/Time: 04/16/20 16:51 Discharge Attestations Time Spent in Discharge Care*: less than 30 min Quality Metrics Clinical Quality Measures During this hospital stay, did patient experience: None Coding Level of Care Code Acute Non Destructive Testing Technician for Chg Fwd Diagnoses Intractable vomiting R11.2 Nausea presence: with nausea Vomiting type: unspecified Perimenopausal N95.1
[2020-04-16 16:38] LABS: Glucose Point of Care 92 mg/dL (70-110)
== END 2020-04-16 16:51 | disposition home or self-care (01) ==
LOC: ER 04-16 03:25 → MEDSURG 04-16 03:30
PROVIDERS: Emergency Medicine; Admitting Provider Internal Medicine; Emergency Provider Emergency Medicine; PCP Nurse Practitioner; Visit Provider Hospitalist
DX: R11.2 Nausea with vomiting, unspecified (principal); N95.1 Menopausal and female climacteric states; Z87.891 Personal history of nicotine dependence; Z82.49 Family history of ischemic heart disease and other diseases of the circulatory system; Z83.3 Family history of diabetes mellitus; K21.9 Gastro-esophageal reflux disease without esophagitis; I10 Essential (primary) hypertension; J44.9 Chronic obstructive pulmonary disease, unspecified; E11.9 Type 2 diabetes mellitus without complications
CPT/HCPCS: 12345; 36415; 36416; 74176; 80048; 80053; 80306; 81001; 81025; 82962; 83690; 83735; 84100; 84484; 85025; 93005; 96361; 96365; 96372; 96375; 99283; 99285; A9270; C9113; G0378; J1630; J1650; J2405; J2543; J2550; J2765; J3490; J7030

== ENCOUNTER 2020-05-16 20:17 | Emergency (ER) | payer MEDICARE, MEDICAID, SELFPAY ==
[2020-05-16] MEDS: sodium chloride 0.9% 1,000 ML 999 ML IV (20:20)
[2020-05-16 20:23] VITALS: BP 160/86; PULSE 99; RESP 22; TEMP 36.1; O2SAT 96
--- NOTE | 2020-05-16 20:44 | W.ED.NAVMDI ---
HPI - Nausea/Vomiting/Diarrhea General: Chief complaint: Nausea/Vomiting/Diarrhea Stated complaint: HIGH BP; N/V Time Seen by Provider: 05/16/20 20:28 History of Present Illness: HPI Narrative: Patient with nausea and vomiting since Saturday. Patient has elected to smoke marijuana because she is going to divorce has lot of anxiety. Negative keeping much down. Blood sugars controlled with a low-carb diet history of hyperemesis syndrome most likely cannabis MD elicited complaint: nausea, vomiting and diarrhea Pertinent past history: cyclical vomiting Description of vomiting: watery and bilious Description of diarrhea: watery Associated nausea: Yes Associated abdominal pain: No Severity: moderate Quality: cramping Exacerbating factors: eating Context: marijuana use Associated symtoms: Reports nausea; Denies anxiety, change in vision, chest pain or headache(s) Review of Systems Const: Denies: fever(s), chills or body aches Eyes: Denies: change in vision or blurry vision ENMT: Denies: throat pain or nasal congestion Card: Denies: chest pain or dyspnea on exertion Resp: Denies: dyspnea, productive cough or non-productive cough GI: Reports: nausea and vomiting Musc: Denies: extremity pain Skin/Breast: Denies: rash Neuro: Denies: headache(s) Psych: Denies: anxiety or depression Jakob/Lymph: Denies: easy bruising PFSH ED PFSH: Medical History (Updated 04/16/20 @ 22:50 by Viktoria Baltazar MD) Anxiety and depression Essential (primary) hypertension GERD (gastroesophageal reflux disease) Obesity Type 2 diabetes mellitus without complications Surgical History (Updated 04/16/20 @ 22:50 by Viktoria Baltazar MD) History of back surgery History of cholecystectomy History of tubal ligation Family History Other Diabetes Heart disease Social History Smoking and tobacco status: former smoker Second hand smoke exposure: No Smoking risk assessment/counseling performed?: No Alcohol intake: current Alcohol intake frequency: holidays/special occasions only Desire information about alcohol rehabilitation?: No Counseling given: No Desire information about substance/drug rehabilitation?: No Counseling given: No Female Reproductive History: Date of last menstrual period: 04/08/20 Physical Exam Const: COMMON NORMALS: no acute distress, average body habitus and patient oriented x3 HENMT: COMMON NORMALS: normocephalic HEAD & SCALP: normal to inspection and normocephalic FACE & SINUS: normal facial exam Eye: COMMON NORMALS: conjunctivae normal GENERAL EYE: appearance normal, both eyes and all related structures CONJUNCTIVA: Yes conjunctivae normal Neck/C-Spine: COMMON NORMALS: no JVD Chest: COMMONS NORMALS: normal inspection of the chest Resp: COMMON NORMALS: normal respiratory effort and clear to auscultation bilaterally AUSCULTATION: clear to auscultation bilaterally Cardio: COMMON NORMALS: no JVD, regular rate and regular rhythm RATE: regular rate RHYTHM: regular rhythm GI: COMMON NORMALS: Normal to inspection, nondistended, normoactive bowel sounds present Extremity: COMMON NORMALS: normal to inspection and full ROM Neuro: COMMON NORMALS: patient oriented x3 Course Vital Signs: Vital signs: Vital Signs Temperature 96.9 F L 05/16/20 20:23 Pulse Rate 99 05/16/20 20:23 Respiratory Rate 22 H 05/16/20 20:23 Blood Pressure 160/86 05/16/20 20:23 Pulse Oximetry 96 05/16/20 20:23 Discharge Plan Discharge Prescriptions: No Action Contrave 8-90 mg tablet extended release 1 tab PO QAM RF: 0 fluticasone propionate 110 mcg/actuation HFA aerosol inhaler 2 puff INHALATION BID PRN (Reason: Shortness Of Breath) RF: 0 fluoxetine 40 mg capsule 40 mg PO DAILY RF: 0 furosemide 20 mg tablet 20 mg PO DAILY RF: 0 lisinopril 40 mg tablet 40 mg PO DAILY RF: 0 amlodipine [Norvasc] 2.5 mg tablet 2.5 mg PO DAILY RF: 0 albuterol sulfate [ProAir HFA] 90 mcg/actuation HFA aerosol inhaler 1 - 2 puff INHALATION Q4H PRN (Reason: Shortness Of Breath) RF: 0 pantoprazole [Protonix] 20 mg tablet,delayed release (DR/EC) 20 mg PO BID RF: 0 Coding Level of Care Code ED Gallery Assistant for Stef Esqueda
[2020-05-16] MEDS: diphenhydrAMINE 50 mg/mL SDV 1mL 25 MG IVP (20:45)
[2020-05-16 21:31] LABS: Basophils # 0.1 10^3/uL (0.0-0.1); Basophils % 0.7 %; Eosinophils # 0.1 10^3/uL (0.0-0.8); Eosinophils % 0.6 %; Hematocrit 42.7 % (37.0-47.0); Hemoglobin 12.7 g/dL (11.5-15.3); Lymphocytes # 2.9 10^3/uL (0.8-4.8); Lymphocytes % 19.6 %; Mean Corpuscular HGB Conc 29.7 g/dL (30.0-36.0); Mean Corpuscular Hemoglobin 23.6 pg (28.0-34.0); Mean Corpuscular Volume 79.2 fL (81-99); Monocytes # 1.1 10^3/uL (0.2-0.9); Monocytes % 7.2 %; Neutrophils # 10.4 10^3/uL (1.8-7.7); Neutrophils % 71.7 %; Nucleated Red Blood Cells % 0 %; Platelet Count 413 10^3/cmm (130-400); Red Blood Count 5.39 10^6/uL (4.1-5.3); Red Cell Distribution Width 15.2 % (12.1-15.1); White Blood Count 14.5 10^3/uL (4.0-10.0)
[2020-05-16] MEDS: ondansetron 2 mg/ML SDV 2 mL 8 MG IVP (21:32)
[2020-05-16] MEDS: SUMAtriptan 6 mg/0.5 mL SDV SUBCUT (21:35)
[2020-05-16 21:49] LABS: Alanine Aminotransferase 20 U/L (0-33); Albumin Level 4.5 g/dL (3.5-5.2); Alkaline Phosphatase 93 IU/L (35-105); Anion Gap 18.2 (5-19); Aspartate Amino Transferase 20 U/L (0-32); Blood Urea Nitrogen 15 mg/dL (6-20); Calcium 9.8 mg/dL (8.5-10.5); Carbon Dioxide 24 mmol/L (22-29); Chloride 98 mmol/L (98-107); Globulin 3.1 g/dL (1.3-4.6); Glomerular Filtration Rate 67.7 mL/min (90-130); Glucose 120 mg/dL (65-115); Lipase 37 U/L (13-60); Osmolality Calculated 281 mOsm/kg (285-295); Potassium 3.2 mmol/L (3.5-5.1); Sodium 137 mmol/L (136-145); Total Bilirubin 0.4 mg/dL (0.15-1.2); Total Protein 7.6 g/dL (6.6-8.7)
[2020-05-16] MEDS: lidocaine 2% viscous 15 ML, aluminum-mag hydrox-simethicon 30 ML, sucralfate oral liq 1 GM PO (21:49)
[2020-05-16] MEDS: potassium chloride ER 10 mEq Tablet 20 MEQ PO (22:35)
[2020-05-16 22:45] LABS: Glucose Urine UA Norm (Normal); Protein Urine Neg (Negative); Specific Gravity, Urine 1.025 (1.005-1.030); Urine Appearance Cloudy (CLEAR); Urine Color Yellow (Yellow); pH Urine 5 (5-7)
[2020-05-16 22:46] LABS: Add Urine Microscopic? YES; Bacteria Urine 1+; Bilirubin Urine 1+ (NEGATIVE); Blood Urine Trace (Negative); Ketones Urine 1+ (Negative); Leukocyte Esterase Urine Negative (Negative); Mucus Urine 2+; Nitrate Urine Negative (Negative); RBC Urine 0-4 /hpf (0-2); Squamous Epithelial Cell Urine 0-4 (0-5); Urobilinogen Urine 1 mg/dL (Negative); WBC Urine 0-4 /hpf (0-5)
--- NOTE | 2020-05-16 23:49 | PC.NURSE ---
After zofran adm pt describes pain as afterburnish . MERCHANDISING TEAM LEAD notified. GI cocktail ordered. Pt states complete relief from pain and nausea after GI cocktail
[2020-05-16 23:52] VITALS: BP 126/86; PULSE 84; RESP 18; O2SAT 97
--- NOTE | 2020-05-17 00:02 | PC.NURSE ---
i agree with this assessment
== END 2020-05-17 00:02 | disposition home or self-care (01) ==
PROVIDERS: Emergency Provider Nurse Practitioner Family; PCP Nurse Practitioner
DX: R11.2 Nausea with vomiting, unspecified (principal); R19.7 Diarrhea, unspecified; I10 Essential (primary) hypertension; E11.9 Type 2 diabetes mellitus without complications; Z87.891 Personal history of nicotine dependence
CPT/HCPCS: 12345; 80053; 81001; 83690; 85025; 96361; 96372; 96374; 96375; 99283; J1200; J2405; J3030; J7030

== ENCOUNTER → 2020-06-14 14:20 | Outpatient (BNVA) | payer MEDICARE, MEDICAID, SELFPAY | PROVIDERS: PCP Nurse Practitioner; Visit Provider Nurse Practitioner | DX: E11.9 Type 2 diabetes mellitus without complications (principal); I10 Essential (primary) hypertension; F41.9 Anxiety disorder, unspecified; F32.9 Major depressive disorder, single episode, unspecified; K21.9 Gastro-esophageal reflux disease without esophagitis; G47.10 Hypersomnia, unspecified | CPT/HCPCS: 81000 ==

== ENCOUNTER 2020-07-18 20:00 | Outpatient (CLI) | payer MEDICARE, MEDICAID, SELFPAY | END 2020-07-18 20:01 | disposition home or self-care (01) | LOC: SLEEP 07-19 09:28 | PROVIDERS: PCP Nurse Practitioner; Visit Provider Nurse Practitioner | DX: G47.33 Obstructive sleep apnea (adult) (pediatric) (principal) | CPT/HCPCS: 95811 ==

== ENCOUNTER → 2020-10-06 11:26 | Outpatient (BNVA) | payer MEDICARE, MEDICAID, SELFPAY | PROVIDERS: PCP Nurse Practitioner; Visit Provider Nurse Practitioner Family | DX: Z11.59 Encounter for screening for other viral diseases (principal); M79.10 Myalgia, unspecified site | CPT/HCPCS: 87635 ==

== ENCOUNTER → 2020-10-14 09:22 | Outpatient (BNVA) | payer MEDICARE, MEDICAID, SELFPAY | PROVIDERS: PCP Nurse Practitioner; Visit Provider Nurse Practitioner Family | DX: Z20.828 Contact with and (suspected) exposure to other viral communicable diseases (principal); J98.8 Other specified respiratory disorders | CPT/HCPCS: 87635 ==

== ENCOUNTER → 2021-03-15 10:15 | Outpatient (BNVA) | payer MEDICARE, MEDICAID, SELFPAY | PROVIDERS: PCP Nurse Practitioner; Visit Provider Nurse Practitioner Family | DX: M17.0 Bilateral primary osteoarthritis of knee (principal); R06.02 Shortness of breath; E11.9 Type 2 diabetes mellitus without complications; R60.0 Localized edema; I10 Essential (primary) hypertension; F41.9 Anxiety disorder, unspecified; F32.9 Major depressive disorder, single episode, unspecified; M54.2 Cervicalgia; K21.00 Gastro-esophageal reflux disease with esophagitis, without bleeding; F17.200 Nicotine dependence, unspecified, uncomplicated | CPT/HCPCS: 71046; 73562; 80053; 80061; 83036; 83880; 84443; 85025 ==

== ENCOUNTER 2021-04-10 14:31 | Outpatient (CLI) | payer MEDICARE, MEDICAID, SELFPAY ==
--- NOTE | 2021-04-10 15:00 | USCV_ITS ---
Iram Centeno Age: 45 Gender: F : 1975 Exam Date: 04/10/2021 15:16 Ordering Phys: Jessy Cason MARINE DESIGNERJose D Technologist: Bianca Pineda Exam Location: [facility] – [place] Indication: Localized Edema BP: 157 / 95 HR: 108 Rhythm: Sinus Technical Quality: TDS because of body habitus MEASUREMENTS (Male / Female) Normal Values 2D ECHO LV Diastolic Diameter PLAX 5.0 cm 4.2 - 5.9 / 3.9 - 5.3 cm LV Systolic Diameter PLAX 3.5 cm IVS Diastolic Thickness 1.1 cm 0.6 - 1.0 / 0.6 - 0.9 cm IVS Systolic Thickness 1.8 cm LVPW Diastolic Thickness 1.0 cm 0.6 - 1.0 / 0.6 - 0.9 cm LVPW Systolic Thickness 1.3 cm LVOT Diameter 2.0 cm LV Ejection Fraction 2D Teich 58.1 % LV Ejection Fraction MOD 2C 66.3 % LV Ejection Fraction 2C AL 70.9 % LA Diameter 3.9 cm LA Width 3.5 cm LA Height 4.6 cm RA Width 2.9 cm Aorta at Sinotubular Diameter 2.6 cm M-MODE LV Diastolic Diameter MM 5.1 cm 4.2 - 5.9 / 3.9 - 5.3 cm LV Systolic Diameter MM 3.5 cm LV Ejection Fraction MM Teich 59.1 % IVS Diastolic Thickness MM 0.9 cm 0.6 - 1.0 / 0.6 - 0.9 cm IVS Systolic Thickness MM 1.4 cm LVPW Diastolic Thickness MM 0.9 cm 0.6 - 1.0 / 0.6 - 0.9 cm LVPW Systolic Thickness MM 1.5 cm Aortic Annulus Diameter 2.8 cm LA Ao Ratio MM 1.4 MV E Point Septal Separation 0.4 cm DOPPLER AV Peak Velocity 144.0 cm/s LVOT Peak Velocity 109.0 cm/s AV Area Cont Eq vti 2.2 cm squared AV Area Cont Eq pk 2.4 cm squared MV Area PHT 5.4 cm squared Mitral E to A Ratio 1.2 MV E' Velocity 61.0 cm/s Mitral E to MV E' Ratio 8.4 Mitral E to LV E' Lateral Ratio 8.3 Mitral E to LV E' Septal Ratio 8.5 TR Peak Velocity 288.0 cm/s TR Peak Gradient 33.2 mmHg Right Atrial Pressure 3.0 mmHg Pulmonary Artery Systolic Pressu 36.2 mmHg PV Peak Velocity 141.7 cm/s RV Acceleration Time 0.1 s RV Ejection Time 0.3 s RV AcT/ET 0.4 FINDINGS Left Ventricle Normal left ventricular size and systolic function, EF 60 %. No regional wall motion abnormalities. Right Ventricle The right ventricle is normal in size and function. Right Atrium The right atrium is normal in size. Left Atrium The left atrium is normal in size. Mitral Valve No gross abnormalities noted Aortic Valve No gross abnormalities noted Tricuspid Valve Trace tricuspid valve regurgitation. Estimated pulmonary artery peak systolic pressure of 36 mmHg Pulmonic Valve No gross abnormalities noted Pericardium Normal pericardium without effusion. Aorta Normal ascending aorta dimension. CONCLUSIONS Normal left ventricular size and systolic function, EF 60 %. No regional wall motion abnormalities. No significant stenotic or regurgitant lesions. Normal cardiac chamber sizes. Estimated pulmonary artery peak systolic pressure 36 mmHg There is no pericardial effusion. There are no intracardiac masses. No previous study is available for comparison. Dr Bambi Almanza MD FACC (Electronically Signed) Final Date: 10 Apr 2021 20:08 S
== END 2021-04-10 14:32 | disposition home or self-care (01) ==
LOC: RAD 14:37
PROVIDERS: PCP Nurse Practitioner; Visit Provider Nurse Practitioner Family
DX: R60.0 Localized edema (principal); R06.02 Shortness of breath
CPT/HCPCS: 93306

== ENCOUNTER 2021-05-15 12:04 | Emergency (ER) | payer MEDICARE, MEDICAID, SELFPAY ==
[2021-05-15 12:46] VITALS: BP 137/107; PULSE 114; RESP 18; TEMP 36.4; O2SAT 97; BMI 47.0
[2021-05-15 14:45] LABS: Add Urine Culture? No; Bacteria Urine TRACE /hpf; Bilirubin Urine Neg (Negative); Blood Urine Neg (Negative); Glucose Urine UA Norm (Normal); Ketones Urine Negative (Negative); Leukocyte Esterase Urine Negative (Negative); Mucus Urine 2+ /hpf; Nitrate Urine Negative (Negative); Protein Urine Neg (Negative); Specific Gravity, Urine 1.015 (1.005-1.030); Squamous Epithelial Cell Urine 0-4 /hpf (0-5); Urine Appearance Clear (CLEAR); Urine Color Yellow (Yellow); Urobilinogen Urine Norm (Negative); WBC Urine 0-4 /hpf (0-5); pH Urine 5 (5-7)
[2021-05-15 15:03] LABS: Basophils # 0.1 10^3/uL (0.0-0.1); Basophils % 0.9 %; Eosinophils # 0.2 10^3/uL (0.0-0.8); Eosinophils % 1.4 %; Lymphocytes # 3.4 10^3/uL (0.8-4.8); Lymphocytes % 24.5 %; Mean Corpuscular HGB Conc 30.2 g/dL (30.0-36.0); Mean Corpuscular Hemoglobin 23.4 pg (28.0-34.0); Mean Corpuscular Volume 77.5 fL (81-99); Mean Platelet Volume 9.9 fL (7.4-10.4); Monocytes # 0.9 10^3/uL (0.2-0.9); Monocytes % 6.6 %; Neutrophils # 9.07 10^3/uL (1.8-7.7); Neutrophils % 66.2 %; Nucleated Red Blood Cells % 0 %; Platelet Count 452 10^3/cmm (130-400); Red Blood Count 5.55 10^6/uL (4.1-5.3); Red Cell Distribution Width 17.7 % (12.1-15.1); White Blood Count 13.7 10^3/uL (4.0-10.0)
[2021-05-15 15:23] LABS: Alanine Aminotransferase 34 U/L (0-33); Albumin Level 4.4 g/dL (3.5-5.2); Alkaline Phosphatase 114 IU/L (35-105); Anion Gap 19.5 (5-19); Aspartate Amino Transferase 34 U/L (0-32); Blood Urea Nitrogen 12 mg/dL (6-20); Calcium 9.3 mg/dL (8.5-10.5); Carbon Dioxide 23 mmol/L (22-29); Chloride 98 mmol/L (98-107); Globulin 3.4 g/dL (1.3-4.6); Glomerular Filtration Rate 59.7 mL/min (90-130); Glucose 108 mg/dL (65-115); Lipase 44 U/L (13-60); Osmolality Calculated 284 mOsm/kg (285-295); Potassium 3.5 mmol/L (3.5-5.1); Sodium 137 mmol/L (136-145); Total Bilirubin 0.4 mg/dL (0.15-1.2); Total Protein 7.8 g/dL (6.6-8.7)
--- NOTE | 2021-05-15 17:21 | ED_ITS ---
HPI - Nausea/Vomiting/Diarrhea General: Chief complaint: Nausea/Vomiting/Diarrhea Stated complaint: N/V, ABD pain Time Seen by Provider: 05/15/21 17:17 History of Present Illness: HPI Narrative: Patient comes in for nausea vomiting diarrhea since last Saturday. Patient reports since last Saturday she has had some nausea and vomiting at times but it is worsened since Saturday when she was added with Metformin and she started having diarrhea at that time 2. Patie nt is alert oriented. Patient does have a history of GERD. Patient also has a history of hyperglycemia without diagnosis of diabetes, and hypertension. MD elicited complaint: nausea, vomiting and diarrhea Onset (ago): day(s) Description of vomiting: watery Description of diarrhea: lose Associated nausea: Yes Associated abdominal pain: No Severity: mild Quality: dull Associated symtoms: Reports nausea Review of Systems General: Reports: 10 or more systems reviewed and unremarkable except in HPI and below GI: Reports: nausea, vomiting and diarrhea PFSH ED PFSH: Medical History Anxiety and depression Essential (primary) hypertension GERD (gastroesophageal reflux disease) Obesity Severe obstructive sleep apnea Type 2 diabetes mellitus without complications Surgical History History of back surgery History of cholecystectomy History of tubal ligation Family History Other Diabetes Heart disease Social History Smoking and tobacco status: current every day smoker Second hand smoke exposure: Yes Smoking risk assessment/counseling performed?: Yes Alcohol intake: current Alcohol intake frequency: holidays/special occasions only Desire information about alcohol rehabilitation?: No Counseling given: No Desire information about substance/drug rehabilitation?: No Counseling given: No Adopted: No Caregiver/support person: No Lives independently: Yes Household members: children Housing: House Marital status: Legally Number of children: 3 service: No Current occupational status: disabled Pets and animals: Yes History of recent travel: No Current gender identity: Female Female Reproductive History: Date of last menstrual period: 04/01/21 Physical Exam Const: COMMON NORMALS: no acute distress and patient oriented x3 GENERAL APPEARANCE: cooperative HENMT: COMMON NORMALS: normocephalic and Normal external nose present HEAD & SCALP: normal to inspection and normocephalic NOSE: Normal external nose present MOUTH: Normal oral and palatal mucosa present Eye: GENERAL EYE: appearance normal, both eyes and all related structures Neck/C-Spine: COMMON NORMALS: full ROM Lymph: LYMPHATIC: no lymphadenopathy noted Chest: COMMONS NORMALS: normal inspection of the chest Resp: COMMON NORMALS: normal respiratory effort EFFORT & INSPECTION: Yes able to speak in complete sentences Cardio: COMMON NORMALS: regular rate and regular rhythm RATE: regular rate RHYTHM: regular rhythm GI: COMMON NORMALS: non-tender : COMMON NORMALS: Yes no CVA tenderness BLADDER/KIDNEY EXAM: Yes no CVA tenderness Back/Pelvis: COMMON NORMALS: no CVA tenderness and thoracic and lumbar spine normal to inspection Extremity: COMMON NORMALS: normal to inspection Neuro: COMMON NORMALS: patient oriented x3 and moves all extremities Psych: COMMON NORMALS: mental status grossly normal and cooperative Skin: COMMON NORMALS: no rashes or lesions noted GENERAL SKIN EXAM: no rashes or lesions noted Course Vital Signs: Vital signs: Vital Signs Temperature 97.6 F 05/15/21 12:46 Pulse Rate 114 H 05/15/21 12:46 Respiratory Rate 18 05/15/21 12:46 Blood Pressure 137/107 05/15/21 12:46 Pulse Oximetry 97 05/15/21 12:46 MDM - Nausea/Vomiting/Diarrhea MDM Narrative: Medical decision making narrative: Patient comes in today for concerns of nausea vomiting and diarrhea since Saturday. On exam appears well. Patient does have some mild dry mucosa. Abdomen soft nontender. Skin is warm and dry. Vital signs are normal. Differential diagnosis includes not limited to gastroenteritis, GERD, adverse drug effect, dehydration. Laboratory values suggest maybe some mild dehydration. Patient was given IV fluids 1 L of normal saline and some Reglan. Patient be continued on Reglan to help with the nausea and vomiting. Patient was recommended to hold Metformin for the next 3 to 4 days due to diarrhea. Recommend the patient follow-up with primary care in 3 to 4 days for recheck. Patient was treated with fluids and Reglan and had improvement of symptoms and able to tolerate oral liquids. Patient agreed to plan for follow-up. Lab Data: Labs: Lab Results 05/15/21 05/15/21 05/15/21 Range/Units 13:32 14:52 14:52 WBC 13.7 H (4.0-10.0) 10^3/ uL RBC 5.55 H (4.1-5.3) 10^6/u L Hgb 13.0 (11.5-15.3) g/dL Hct 43.0 (37.0-47.0) % MCV 77.5 L (81-99) fL MCH 23.4 L (28.0-34.0) pg MCHC 30.2 (30.0-36.0) g/dL RDW 17.7 H (12.1-15.1) % Plt Count 452 H (130-400) 10^3/c mm MPV 9.9 (7.4-10.4) fL Neut % (Auto) 66.2 % Lymph % (Auto) 24.5 % Grady % (Auto) 6.6 % Eos % (Auto) 1.4 % Baso % (Auto) 0.9 % Neut # (Auto) 9.07 H (1.8-7.7) 10^3/u L Lymph # (Auto) 3.4 (0.8-4.8) 10^3/u L Grady # (Auto) 0.9 (0.2-0.9) 10^3/u L Eos # (Auto) 0.2 (0.0-0.8) 10^3/u L Baso # (Auto) 0.1 (0.0-0.1) 10^3/u L Nucleated RBC % (a uto) 0 % Nucleated RBCs # 0.0 /100WBC Sodium 137 (136-145) mmol/L Potassium 3.5 (3.5-5.1) mmol/L Chloride 98 (98-107) mmol/L Carbon Dioxide 23 (22-29) mmol/L Anion Gap 19.5 H (5-19) BUN 12 (6-20) mg/dL Creatinine 1.0 H (0.5-0.9) mg/dL GFR Calculation 59.7 L (90-130) mL/min Glucose 108 (65-115) mg/dL Calculated Osmolal ity 284 L (285-295) mOsm/k g Calcium 9.3 (8.5-10.5) mg/dL Total Bilirubin 0.4 (0.15-1.2) mg/dL AST 34 H (0-32) U/L ALT 34 H (0-33) U/L Alkaline Phosphata se 114 H (35-105) IU/L Total Protein 7.8 (6.6-8.7) g/dL Albumin 4.4 (3.5-5.2) g/dL Globulin 3.4 (1.3-4.6) g/dL Lipase 44 (13-60) U/L Urine Color Yellow (Yellow) Urine Appearance Clear (CLEAR) Urine pH 5 (5-7) Ur Specific Gravit y 1.015 (1.005-1.030) Urine Protein Neg (Negative) Urine Glucose (UA) Norm (Normal) Urine Ketones Negative (Negative) Urine Blood Neg (Negative) Urine Nitrate Negative (Negative) Urine Bilirubin Neg (Negative) Urine Urobilinogen Norm (Negative) mg/dL Ur Leukocyte Angelina ase Negative (Negative) Urine RBC None (0-2) /hpf Urine WBC 0-4 H (0-5) /hpf Ur Squamous Epith Cells 0-4 H (0-5) /hpf Amorphous Sediment Not Reportable Urine Bacteria Trace (NONE) /hpf Urine Mucus 2+ /hpf Discharge Plan Discharge Patient Disposition: Home Clinical Impression: Nausea and vomiting in adult, Dehydration Condition: Stable Prescriptions: New Reglan 10 mg tablet 10 mg PO Q6H 7 Days Qty: 28 RF: 0 No Action fluticasone propionate 110 mcg/actuation HFA aerosol inhaler 2 puff INHALATION BID PRN (Reason: Shortness Of Breath) RF: 0 (DME) blood pressure test kit-large Kit See Rx Instructions .ROUTE .MEDSUPPLY Qty: 1 RF: 0 albuterol sulfate [ProAir HFA] 90 mcg/actuation HFA aerosol inhaler 1 - 2 puff INHALATION Q4H PRN (Reason: Shortness Of Breath) 30 Days Qty: 6.7 RF: 5 nicotine [Nicoderm CQ] 21 mg/24 hr patch 24 hour 1 patch transdermal DAILY 28 Days Qty: 28 RF: 0 pantoprazole [Protonix] 20 mg tablet,delayed release (DR/EC) 20 mg PO BID Qty: 60 RF: 2 lisinopril 40 mg tablet 40 mg PO DAILY 30 Days Qty: 30 RF: 2 hydroxyzine pamoate 25 mg capsule 25 mg PO BID PRN (Reason: itching) Qty: 60 RF: 2 fluoxetine 40 mg capsule 40 mg PO DAILY 30 Days Qty: 30 RF: 2 cyclobenzaprine 10 mg tablet 10 mg PO BID 30 Days Qty: 60 RF: 2 buspirone 30 mg tablet 30 mg PO BID 30 Days Qty: 60 RF: 2 albuterol sulfate [Ventolin HFA] 90 mcg/actuation HFA aerosol inhaler 2 puff inhalation QID PRN (Reason: shortness of breath or wheezing) 30 Days Qty: 6.7 RF: 2 furosemide 20 mg tablet 20 mg PO DAILY 30 Days Qty: 30 RF: 0 amlodipine 5 mg tablet 5 mg PO DAILY 30 Days Qty: 30 RF: 2 ondansetron HCl 8 mg tablet 8 mg PO Q8H PRN (Reason: nausea and vomiting) 7 Days Qty: 21 RF: 0 ferrous gluconate 324 mg (38 mg iron) tablet 324 mg PO BID 30 Days Qty: 60 RF: 2 metformin 500 mg tablet extended release 24 hr 500 mg PO BID 30 Days Qty: 60 RF: 2 (DME) cpap See Rx Instructions .Route .MEDSUPPLY Qty: 1 RF: 0 Tylenol 325 mg Tablet 325 mg PO QID PRN (Reason: Pain) RF: 0 ibuprofen 200 mg Tablet 200 mg PO Q6H PRN (Reason: Pain) RF: 0 Discharge Orders: Discharge ED (Routine); Ordered 05/15/21 Ordered By: Bong Stallings Referrals: Anai Smith, LOSS PREVENTION REPRESENTATIVE-[facility] [Primary Care Provider] - Discharge Diet: Advance as tolerated Discharge Activity: Increase activity as tolerated Patient Instructions: Acute Nausea and Vomiting (ED), Opioid Safety Activity Restrictions/Additional Instructions: Recommend patient hold Metformin for the next 3 to 4 days until nausea and vomiting is resolved. Patient to drink plenty of fluids. Light diet increase as tolerated. Follow-up with primary care in 2 to 3 days for recheck. Return to the ER for new concerns or worsening symptoms. Coding Level of Care Code ED Slubber Tender for Stef Esqueda
[2021-05-15] MEDS: metoclopramide 5 mg/mL SDV 2 mL 10 MG IVP (18:17)
[2021-05-15] MEDS: sodium chloride 0.9% 1,000 ML 999 ML IV (18:17)
[2021-05-15 19:27] VITALS: BP 134/81; PULSE 99; RESP 18; O2SAT 98
== END 2021-05-15 19:29 | disposition home or self-care (01) ==
PROVIDERS: Physician Assistant; Emergency Provider Nurse Practitioner Family; PCP Nurse Practitioner
DX: E86.0 Dehydration (principal); I10 Essential (primary) hypertension; E11.9 Type 2 diabetes mellitus without complications; Z79.84 Long term (current) use of oral hypoglycemic drugs; F17.210 Nicotine dependence, cigarettes, uncomplicated
CPT/HCPCS: 36415; 80053; 81001; 83690; 85025; 96361; 96374; 99283; J2765; J7030

== ENCOUNTER → 2021-08-21 10:12 | Outpatient (BNVA) | payer MEDICARE, MEDICAID, SELFPAY | PROVIDERS: PCP Nurse Practitioner; Visit Provider Nurse Practitioner Family | DX: I10 Essential (primary) hypertension (principal); E11.9 Type 2 diabetes mellitus without complications; R06.02 Shortness of breath; D50.9 Iron deficiency anemia, unspecified; F17.200 Nicotine dependence, unspecified, uncomplicated | CPT/HCPCS: 80053; 80061; 83036; 84443; 85025 ==

== ENCOUNTER → 2021-10-30 09:20 | Outpatient (BNVA) | payer MEDICARE, MEDICAID, SELFPAY | PROVIDERS: PCP Nurse Practitioner; Visit Provider Nurse Practitioner Family | DX: Z20.822 Contact with and (suspected) exposure to COVID-19 (principal) | CPT/HCPCS: 87635 ==

== ENCOUNTER → 2021-12-27 12:02 | Outpatient (BNVA) | payer MEDICARE, MEDICAID, SELFPAY | PROVIDERS: PCP Nurse Practitioner; Visit Provider Pediatrics | DX: Z20.822 Contact with and (suspected) exposure to COVID-19 (principal) | CPT/HCPCS: 87635 ==

== ENCOUNTER → 2022-03-15 13:35 | Outpatient (BNVA) | payer MEDICARE, MEDICAID, SELFPAY | PROVIDERS: PCP Nurse Practitioner; Visit Provider Nurse Practitioner Family | DX: E11.9 Type 2 diabetes mellitus without complications (principal) | CPT/HCPCS: 80053; 80061; 83036; 84443; 85025 ==

== ENCOUNTER 2022-05-03 16:54 | Emergency (ER) | payer MEDICARE, MEDICAID, SELFPAY ==
[2022-05-03 16:55] VITALS: BP 181/106; PULSE 113; RESP 30; TEMP 36.9; O2SAT 98; BMI 54.8
--- NOTE | 2022-05-03 17:19 | W.ED.GENADLT ---
Documented by User: Apolinar Aguilar DO 05/05/22 17:45 HPI - General Adult General: Chief complaint: General Medical Stated complaint: HEMORRHOIDAL PAIN & BLEEDING Time Seen by Provider: 05/03/22 16:57 Source: patient Mode of arrival: ambulatory Limitations: no limitations History of Present Illness: 46-year-old female presents emergency room planing large amounts of bright red blood per rectum and inflamed hemorrhoids. She states she has had bleeding for last couple days it is getting worse. She states she has had a colonoscopy in the past and was told she had internal hemorrhoids. She denies any weight loss no hematemesis coffee-ground emesis. No dysuria urgency or frequency Onset (ago): day(s) Severity: severe Quality: sharp Pain Consistency: constant Relieving factors: none Exacerbating factors: none Associated symptoms: Reports decreased appetite; Deny chest pain, confusion, cough, diaphoresis, dyspnea, fevers/chills, headache(s), malaise, nausea, rash, palpitations, seizures, short of breath, syncope, vomiting or weakness Treatments prior to arrival: none Review of Systems Const: Denies: fever(s), chills, body aches, change in appetite, malaise or diaphoresis ENMT: Denies: throat pain, ear or mastoid pain, nasal discharge or nasal congestion Card: Denies: chest pain, palpitations or syncope Resp: Denies: dyspnea, productive cough, non-productive cough or wheezing GI: Denies: abdominal pain, nausea or vomiting : Denies: flank pain, difficulty voiding, dysuria, urinary frequency or urinary urgency Skin/Breast: Denies: rash Neuro: Denies: headache(s) or confusion PFSH ED PFSH: Medical History Anxiety and depression Essential (primary) hypertension GERD (gastroesophageal reflux disease) Hyperlipemia Severe obstructive sleep apnea Type 2 diabetes mellitus without complications Surgical History History of back surgery History of cholecystectomy History of tubal ligation Status post colonoscopy Family History Other Diabetes Heart disease Social History Smoking and tobacco status: current every day smoker Second hand smoke exposure: Yes Smoking risk assessment/counseling performed?: Yes Alcohol intake: current Alcohol intake frequency: holidays/special occasions only Desire information about alcohol rehabilitation?: No Counseling given: No Desire information about substance/drug rehabilitation?: No Counseling given: No Adopted: No Caregiver/support person: No Lives independently: Yes Household members: children Housing: House Marital status: Legally Number of children: 3 service: No Current occupational status: disabled Pets and animals: Yes History of recent travel: No Current gender identity: Female Female Reproductive History: Date of last menstrual period: 04/01/21 Physical Exam Const: GENERAL APPEARANCE: cooperative ORIENTATION/CONSCIOUSNESS: Yes awake, Yes oriented to person, Yes oriented to place and Yes oriented to time HENMT: COMMON NORMALS: normocephalic, atraumatic and hearing grossly normal bilaterally HEAD & SCALP: normocephalic and atraumatic Neck/C-Spine: COMMON NORMALS: no JVD Resp: COMMON NORMALS: normal respiratory effort, No retractions, No use of accessory muscles and clear to auscultation bilaterally AUSCULTATION: clear to auscultation bilaterally Cardio: COMMON NORMALS: no JVD, regular rate, regular rhythm and No murmurs present (Cardio) RATE: regular rate RHYTHM: regular rhythm GI: COMMON NORMALS: Soft to palpation and No hepatosplenomegaly present AUSCULTATION: Yes normoactive bowel sounds PALPATION: Yes Soft to palpation, No Tenderness to palpation present (GI), No Guarding due to palpation present (GI) and Yes No hepatosplenomegaly present RECTAL EXAM: visual inspection normal (Few small skin tags noted no blood no thrombosed hemorrhoids) OTHER: No external hemorrhoids patient would not tolerate digital rectal exam due to pain Extremity: COMMON NORMALS: normal to inspection, capillary refill normal, no clubbing, cyanosis or edema, no calf tenderness and no pedal edema Neuro: SENSORIUM/ORIENTATION: Yes oriented to person, Yes oriented to place and Yes oriented to time Skin: COMMON NORMALS: no rashes or lesions noted GENERAL SKIN EXAM: no rashes or lesions noted Course Vital Signs: Vital signs: Vital Signs Temperature 98.5 F 05/03/22 16:55 Pulse Rate 117 H 05/03/22 18:41 Respiratory Rate 28 H 05/03/22 18:45 Blood Pressure 122/97 05/03/22 18:41 Pulse Oximetry 98 05/03/22 18:45 MDM - General Adult Medical Decision Making Care signed out to Dr. Dorantes at change of shift. See final notes for diagnosis and disposition. Patient presents here with rectal bleeding likely from her hemorrhoids she also has abdominal pain patient's hemoglobin here is normal CT scan here shows no acute findings. We will get her follow-up with surgery prescribe her Proctofoam she is to return if worsening she understands agrees to plan. Medical Records I reviewed the patient's medical records. Lab Data I reviewed the patient's lab results. : 05/03/22 17:15 05/03/22 17:15 Radiology Impressions Abdomen/Pelvis CT 05/03/22 17:27 IMPRESSION: 1. Negative for acute inflammatory process in the abdomen or pelvis. Negative for contrast extravasation seen to suggest a source of rectal bleeding as in provided history. 2. Right lower lobe 7.4 mm pulmonary nodule similar dating back to 06/29/2019, likely benign given stability. 3. Small hiatal hernia. 4. Cholecystectomy. 5. Left kidney cyst, negative for follow up. 6. Left kidney inguinal hernia containing omentum without bowel. Laboratory Results WBC 14.2 10^3/uL (4.0-10.0) H 05/03/22 17:15 RBC 5.69 10^6/uL (4.1-5.3) H 05/03/22 17:15 Hgb 17.1 g/dL (11.5-15.3) H 05/03/22 17:15 Hct 49.4 % (37.0-47.0) H 05/03/22 17:15 MCV 86.8 fl (81-99) 05/03/22 17:15 MCH 30.1 pg (28.0-34.0) 05/03/22 17:15 MCHC 34.6 g/dL (30.0-36.0) 05/03/22 17:15 RDW 13.6 % (12.1-15.1) 05/03/22 17:15 Plt Count 359 10^3/cmm (130-400) 05/03/22 17:15 MPV 10.8 fL (7.4-10.4) H 05/03/22 17:15 Lymph % (Auto) Not Reportable 05/03/22 17:15 [place] % (Auto) Not Reportable 05/03/22 17:15 Lymph # (Auto) Not Reportable 05/03/22 17:15 [place] # (Auto) Not Reportable 05/03/22 17:15 Total Counted 100 (0-100) 05/03/22 17:15 Atypical Lymphs % 6.0 % (0-5) H 05/03/22 17:15 Absolute Neutrophils 8.2 10^3/cmm (1.4-6.5) H 05/03/22 17:15 Segmented Neutrophils 56 % 05/03/22 17:15 Abs Segm Neuts (Man) 8.0 10/cmm (1.6-7.1) H 05/03/22 17:15 Band Neutrophils 2.0 % 05/03/22 17:15 Abs Band Neuts (Man) 0.3 10^3/cmm (0.0-1.2) 05/03/22 17:15 Absolute Lymphocytes 4.7 10^3/cmm (1.2-3.4) H 05/03/22 17:15 Lymphocytes (Manual) 27 % 05/03/22 17:15 Monocytes (Manual) 9.0 % 05/03/22 17:15 Absolute Monocytes 1.3 10^3/cmm (0.1-0.6) H 05/03/22 17:15 Eosinophils (Manual) 0 % 05/03/22 17:15 Absolute Eosinophils 0.0 10^3/cmm (0.0-0.7) 05/03/22 17:15 Basophils (Manual) Not Reportable 05/03/22 17:15 Platelet Estimate Normal (Normal) 05/03/22 17:15 Giant Platelets Trace 05/03/22 17:15 Sodium 134 mmol/L (136-145) L 05/03/22 17:15 Potassium 4.3 mmol/L (3.5-5.1) 05/03/22 17:15 Chloride 95 mmol/L (98-107) L 05/03/22 17:15 Carbon Dioxide 19 mmol/L (22-29) L 05/03/22 17:15 Anion Gap 24.3 (5-19) H 05/03/22 17:15 BUN 17 mg/dL (6-20) 05/03/22 17:15 Creatinine 1.1 mg/dL (0.5-0.9) H 05/03/22 17:15 GFR Calculation 53.2 mL/min (90-130) L 05/03/22 17:15 Glucose 157 mg/dL (65-115) H 05/03/22 17:15 Calculated Osmolality 283 mOsm/kg (285-295) L 05/03/22 17:15 Calcium 9.5 mg/dL (8.5-10.5) 05/03/22 17:15 Total Bilirubin 0.6 mg/dL (0.15-1.2) 05/03/22 17:15 AST 29 U/L (0-32) 05/03/22 17:15 ALT 37 U/L (0-33) H 05/03/22 17:15 Alkaline Phosphatase 142 IU/L (35-105) H 05/03/22 17:15 Total Protein 8.2 g/dL (6.6-8.7) 05/03/22 17:15 Albumin 4.5 g/dL (3.5-5.2) 05/03/22 17:15 Globulin 3.7 g/dL (1.3-4.6) 05/03/22 17:15 Urine Color Yellow (Yellow) 05/03/22 17:40 Urine Appearance Clear (CLEAR) 05/03/22 17:40 Urine pH 5 (5-7) 05/03/22 17:40 Ur Specific [place] 1.025 (1.005-1.030) 05/03/22 17:40 Urine Protein Trace (Negative) 05/03/22 17:40 Urine Glucose (UA) Norm (Normal) 05/03/22 17:40 Urine Ketones 1+ (Negative) H 05/03/22 17:40 Urine Blood Neg (Negative) 05/03/22 17:40 Urine Nitrate Negative (Negative) 05/03/22 17:40 Urine Bilirubin 1+ (Negative) H 05/03/22 17:40 Urine Urobilinogen 1 mg/dL (Negative) H 05/03/22 17:40 Ur Leukocyte Esterase Negative (Negative) 05/03/22 17:40 Urine RBC 0-4 /hpf (0-2) H 05/03/22 17:40 Urine WBC 0-4 /hpf (0-5) H 05/03/22 17:40 Ur Squamous Epith Cells 5-10 /hpf (0-5) H 05/03/22 17:40 Amorphous Sediment Trace /hpf 05/03/22 17:40 Urine Bacteria Trace /hpf (NONE) 05/03/22 17:40 Urine Mucus 4+ /hpf 05/03/22 17:40 Discharge Plan Discharge Patient Disposition: Home Clinical Impression: Abdominal pain Hemorrhoids Qualifiers: Hemorrhoid type: unspecified Qualified Code(s): K64.9 - Unspecified hemorrhoids Condition: Stable Prescriptions: New Reglan 10 mg tablet 10 mg PO Q6H PRN (Reason: nausea and vomiting) Qty: 20 0RF Proctofoam 1 % foam 1 applic NC BID Qty: 15 0RF No Action fluticasone propionate 110 mcg/actuation HFA aerosol inhaler 2 puff INHALATION BID PRN (Reason: Shortness Of Breath) 0RF Rx Instructions: pt states she has not kept any of her medications down since . (DME) blood pressure test kit-large Kit See Rx Instructions .ROUTE .MEDSUPPLY Qty: 1 0RF Rx Instructions: As directed lactulose 10 gram/15 mL solution 15 ml PO BID 28 Days Qty: 840 0RF pantoprazole [Protonix] 20 mg tablet,delayed release (DR/EC) 20 mg PO BID Qty: 60 2RF mirtazapine 30 mg tablet 30 mg PO .bedtime 30 Days Qty: 30 2RF metformin 500 mg tablet extended release 24 hr 500 mg PO BID 30 Days Qty: 60 2RF lisinopril 40 mg tablet 40 mg PO DAILY 30 Days Qty: 30 2RF hydroxyzine pamoate 25 mg capsule 25 mg PO BID PRN (Reason: itching) Qty: 60 2RF fluoxetine 40 mg capsule 40 mg PO DAILY 30 Days Qty: 30 2RF Rx Instructions: Need appointment ferrous gluconate 324 mg (38 mg iron) tablet 324 mg PO BID 30 Days Qty: 60 2RF cyclobenzaprine 10 mg tablet 10 mg PO TID 30 Days Qty: 90 2RF buspirone 30 mg tablet 30 mg PO BID 30 Days Qty: 60 2RF amlodipine 5 mg tablet 5 mg PO DAILY 30 Days Qty: 30 2RF albuterol sulfate [Ventolin HFA] 90 mcg/actuation HFA aerosol inhaler 2 puff inhalation QID PRN (Reason: shortness of breath or wheezing) 30 Days Qty: 6.7 2RF furosemide 20 mg tablet 20 mg PO BID 30 Days Qty: 60 2RF (DME) lancets 26 gauge misc See Rx Instructions .Route Qty: 100 2RF Rx Instructions: use 1 daily (DME) ReliOn Prime Test Strips Strip See Rx Instructions .Route Qty: 100 2RF Rx Instructions: use 1 daily lidocaine HCl-hydrocortison ac 3-0.5 % cream 1 applic NC BID Qty: 7 2RF (DME) cpap See Rx Instructions .Route .MEDSUPPLY Qty: 1 0RF Rx Instructions: As directed auto titrating cpap 7-11 and supplies npi [id number] 99 months (DME) lancets [ReliOn Thin Lancets] 26 gauge misc See Rx Instructions .Route Qty: 100 3RF Rx Instructions: As directed promethazine-DM 6.25-15 mg/5 mL syrup 5 - 10 ml PO Q6H PRN (Reason: cough) Qty: 240 0RF budesonide-formoterol [Symbicort] 160-4.5 mcg/actuation HFA aerosol inhaler 2 puff inhalation BID Qty: 10.2 2RF atorvastatin 20 mg tablet 20 mg PO DAILY Qty: 30 2RF Tylenol 325 mg Tablet 325 mg PO QID PRN (Reason: Pain) 0RF ibuprofen 200 mg Tablet 200 mg PO Q6H PRN (Reason: Pain) 0RF Discharge Orders: Discharge ED (Routine); Ordered 05/03/22 Ordered By: Apryl Dorantes Referrals: Miguel Serra DO [Physician] - 1-3 days Anai Smith, SOFTWARE SALES REPRESENTATIVE-C [Nurse Practitioner] - Discharge Diet: Advance as tolerated Discharge Activity: Resume usual activity Patient Instructions: Hemorrhoids (ED), Abdominal Pain (ED) Coding Level of Care Code ED Agency Cashier for Chg Fwd Documented by User: Apryl Dorantes MD 05/03/22 20:03 HPI - General Adult General: Chief complaint: General Medical Stated complaint: HEMORRHOIDAL PAIN & BLEEDING Time Seen by Provider: 05/03/22 16:57 History of Present Illness: . PFSH ED PFSH: Medical History Anxiety and depression Essential (primary) hypertension GERD (gastroesophageal reflux disease) Hyperlipemia Severe obstructive sleep apnea Type 2 diabetes mellitus without complications Surgical History History of back surgery History of cholecystectomy History of tubal ligation Status post colonoscopy Family History Other Diabetes Heart disease Social History Smoking and tobacco status: current every day smoker Second hand smoke exposure: Yes Smoking risk assessment/counseling performed?: Yes Alcohol intake: current Alcohol intake frequency: holidays/special occasions only Desire information about alcohol rehabilitation?: No Counseling given: No Desire information about substance/drug rehabilitation?: No Counseling given: No Adopted: No Caregiver/support person: No Lives independently: Yes Household members: children Housing: House Marital status: Legally Number of children: 3 service: No Current occupational status: disabled Pets and animals: Yes History of recent travel: No Current gender identity: Female Course Vital Signs: Vital signs: Vital Signs Temperature 98.5 F 05/03/22 16:55 Pulse Rate 117 H 05/03/22 18:41 Respiratory Rate 28 H 05/03/22 18:45 Blood Pressure 122/97 05/03/22 18:41 Pulse Oximetry 98 05/03/22 18:45 MDM - General Adult Medical Decision Making Patient presents here with rectal bleeding likely from her hemorrhoids she also has abdominal pain patient's hemoglobin here is normal CT scan here shows no acute findings. We will get her follow-up with surgery prescribe her Proctofoam she is to return if worsening she understands agrees to plan. Lab Data : 05/03/22 17:15 05/03/22 17:15 Radiology Impressions Abdomen/Pelvis CT 05/03/22 17:27 IMPRESSION: 1. Negative for acute inflammatory process in the abdomen or pelvis. Negative for contrast extravasation seen to suggest a source of rectal bleeding as in provided history. 2. Right lower lobe 7.4 mm pulmonary nodule similar dating back to 06/29/2019, likely benign given stability. 3. Small hiatal hernia. 4. Cholecystectomy. 5. Left kidney cyst, negative for follow up. 6. Left kidney inguinal hernia containing omentum without bowel. Laboratory Results WBC 14.2 10^3/uL (4.0-10.0) H 05/03/22 17:15 RBC 5.69 10^6/uL (4.1-5.3) H 05/03/22 17:15 Hgb 17.1 g/dL (11.5-15.3) H 05/03/22 17:15 Hct 49.4 % (37.0-47.0) H 05/03/22 17:15 MCV 86.8 fl (81-99) 05/03/22 17:15 MCH 30.1 pg (28.0-34.0) 05/03/22 17:15 MCHC 34.6 g/dL (30.0-36.0) 05/03/22 17:15 RDW 13.6 % (12.1-15.1) 05/03/22 17:15 Plt Count 359 10^3/cmm (130-400) 05/03/22 17:15 MPV 10.8 fL (7.4-10.4) H 05/03/22 17:15 Lymph % (Auto) Not Reportable 05/03/22 17:15 [place] % (Auto) Not Reportable 05/03/22 17:15 Lymph # (Auto) Not Reportable 05/03/22 17:15 [place] # (Auto) Not Reportable 05/03/22 17:15 Total Counted 100 (0-100) 05/03/22 17:15 Atypical Lymphs % 6.0 % (0-5) H 05/03/22 17:15 Absolute Neutrophils 8.2 10^3/cmm (1.4-6.5) H 05/03/22 17:15 Segmented Neutrophils 56 % 05/03/22 17:15 Abs Segm Neuts (Man) 8.0 10/cmm (1.6-7.1) H 05/03/22 17:15 Band Neutrophils 2.0 % 05/03/22 17:15 Abs Band Neuts (Man) 0.3 10^3/cmm (0.0-1.2) 05/03/22 17:15 Absolute Lymphocytes 4.7 10^3/cmm (1.2-3.4) H 05/03/22 17:15 Lymphocytes (Manual) 27 % 05/03/22 17:15 Monocytes (Manual) 9.0 % 05/03/22 17:15 Absolute Monocytes 1.3 10^3/cmm (0.1-0.6) H 05/03/22 17:15 Eosinophils (Manual) 0 % 05/03/22 17:15 Absolute Eosinophils 0.0 10^3/cmm (0.0-0.7) 05/03/22 17:15 Basophils (Manual) Not Reportable 05/03/22 17:15 Platelet Estimate Normal (Normal) 05/03/22 17:15 Giant Platelets Trace 05/03/22 17:15 Sodium 134 mmol/L (136-145) L 05/03/22 17:15 Potassium 4.3 mmol/L (3.5-5.1) 05/03/22 17:15 Chloride 95 mmol/L (98-107) L 05/03/22 17:15 Carbon Dioxide 19 mmol/L (22-29) L 05/03/22 17:15 Anion Gap 24.3 (5-19) H 05/03/22 17:15 BUN 17 mg/dL (6-20) 05/03/22 17:15 Creatinine 1.1 mg/dL (0.5-0.9) H 05/03/22 17:15 GFR Calculation 53.2 mL/min (90-130) L 05/03/22 17:15 Glucose 157 mg/dL (65-115) H 05/03/22 17:15 Calculated Osmolality 283 mOsm/kg (285-295) L 05/03/22 17:15 Calcium 9.5 mg/dL (8.5-10.5) 05/03/22 17:15 Total Bilirubin 0.6 mg/dL (0.15-1.2) 05/03/22 17:15 AST 29 U/L (0-32) 05/03/22 17:15 ALT 37 U/L (0-33) H 05/03/22 17:15 Alkaline Phosphatase 142 IU/L (35-105) H 05/03/22 17:15 Total Protein 8.2 g/dL (6.6-8.7) 05/03/22 17:15 Albumin 4.5 g/dL (3.5-5.2) 05/03/22 17:15 Globulin 3.7 g/dL (1.3-4.6) 05/03/22 17:15 Urine Color Yellow (Yellow) 05/03/22 17:40 Urine Appearance Clear (CLEAR) 05/03/22 17:40 Urine pH 5 (5-7) 05/03/22 17:40 Ur Specific [place] 1.025 (1.005-1.030) 05/03/22 17:40 Urine Protein Trace (Negative) 05/03/22 17:40 Urine Glucose (UA) Norm (Normal) 05/03/22 17:40 Urine Ketones 1+ (Negative) H 05/03/22 17:40 Urine Blood Neg (Negative) 05/03/22 17:40 Urine Nitrate Negative (Negative) 05/03/22 17:40 Urine Bilirubin 1+ (Negative) H 05/03/22 17:40 Urine Urobilinogen 1 mg/dL (Negative) H 05/03/22 17:40 Ur Leukocyte Esterase Negative (Negative) 05/03/22 17:40 Urine RBC 0-4 /hpf (0-2) H 05/03/22 17:40 Urine WBC 0-4 /hpf (0-5) H 05/03/22 17:40 Ur Squamous Epith Cells 5-10 /hpf (0-5) H 05/03/22 17:40 Amorphous Sediment Trace /hpf 05/03/22 17:40 Urine Bacteria Trace /hpf (NONE) 05/03/22 17:40 Urine Mucus 4+ /hpf 05/03/22 17:40 Discharge Plan Discharge Patient Disposition: Home Clinical Impression: Abdominal pain Hemorrhoids Qualifiers: Hemorrhoid type: unspecified Qualified Code(s): K64.9 - Unspecified hemorrhoids Condition: Stable Prescriptions: New Reglan 10 mg tablet 10 mg PO Q6H PRN (Reason: nausea and vomiting) Qty: 20 0RF Proctofoam 1 % foam 1 applic NC BID Qty: 15 0RF No Action fluticasone propionate 110 mcg/actuation HFA aerosol inhaler 2 puff INHALATION BID PRN (Reason: Shortness Of Breath) 0RF Rx Instructions: pt states she has not kept any of her medications down since . (DME) blood pressure test kit-large Kit See Rx Instructions .ROUTE .MEDSUPPLY Qty: 1 0RF Rx Instructions: As directed lactulose 10 gram/15 mL solution 15 ml PO BID 28 Days Qty: 840 0RF pantoprazole [Protonix] 20 mg tablet,delayed release (DR/EC) 20 mg PO BID Qty: 60 2RF mirtazapine 30 mg tablet 30 mg PO .bedtime 30 Days Qty: 30 2RF metformin 500 mg tablet extended release 24 hr 500 mg PO BID 30 Days Qty: 60 2RF lisinopril 40 mg tablet 40 mg PO DAILY 30 Days Qty: 30 2RF hydroxyzine pamoate 25 mg capsule 25 mg PO BID PRN (Reason: itching) Qty: 60 2RF fluoxetine 40 mg capsule 40 mg PO DAILY 30 Days Qty: 30 2RF Rx Instructions: Need appointment ferrous gluconate 324 mg (38 mg iron) tablet 324 mg PO BID 30 Days Qty: 60 2RF cyclobenzaprine 10 mg tablet 10 mg PO TID 30 Days Qty: 90 2RF buspirone 30 mg tablet 30 mg PO BID 30 Days Qty: 60 2RF amlodipine 5 mg tablet 5 mg PO DAILY 30 Days Qty: 30 2RF albuterol sulfate [Ventolin HFA] 90 mcg/actuation HFA aerosol inhaler 2 puff inhalation QID PRN (Reason: shortness of breath or wheezing) 30 Days Qty: 6.7 2RF furosemide 20 mg tablet 20 mg PO BID 30 Days Qty: 60 2RF (DME) lancets 26 gauge misc See Rx Instructions .Route Qty: 100 2RF Rx Instructions: use 1 daily (DME) ReliOn Prime Test Strips Strip See Rx Instructions .Route Qty: 100 2RF Rx Instructions: use 1 daily lidocaine HCl-hydrocortison ac 3-0.5 % cream 1 applic NC BID Qty: 7 2RF (DME) cpap See Rx Instructions .Route .MEDSUPPLY Qty: 1 0RF Rx Instructions: As directed auto titrating cpap 7-11 and supplies npi [id number] 99 months (DME) lancets [ReliOn Thin Lancets] 26 gauge misc See Rx Instructions .Route Qty: 100 3RF Rx Instructions: As directed promethazine-DM 6.25-15 mg/5 mL syrup 5 - 10 ml PO Q6H PRN (Reason: cough) Qty: 240 0RF budesonide-formoterol [Symbicort] 160-4.5 mcg/actuation HFA aerosol inhaler 2 puff inhalation BID Qty: 10.2 2RF atorvastatin 20 mg tablet 20 mg PO DAILY Qty: 30 2RF Tylenol 325 mg Tablet 325 mg PO QID PRN (Reason: Pain) 0RF ibuprofen 200 mg Tablet 200 mg PO Q6H PRN (Reason: Pain) 0RF Discharge Orders: Discharge ED (Routine); Ordered 05/03/22 Ordered By: Apryl Dorantes Referrals: Miguel Serra DO [Physician] - 1-3 days Anai Smith, SOFTWARE SALES REPRESENTATIVE-C [Nurse Practitioner] - Discharge Diet: Advance as tolerated Discharge Activity: Resume usual activity Patient Instructions: Hemorrhoids (ED), Abdominal Pain (ED) Coding Level of Care Code ED Agency Cashier for Stef Esqueda
--- NOTE | 2022-05-03 17:27 | CTR_ITS ---
PROCEDURE INFORMATION: Exam: CT Abdomen And Pelvis With Contrast Exam date and time: 05/03/2022 6:29 PM Age: 46 years old Clinical indication: Abdominal pain; Acute; Prior surgery; Surgery date: 6+ months; Surgery type: Tubal ligation, gall bladder; Additional info: Abd pain, rectal bleeding TECHNIQUE: Imaging protocol: Computed tomography of the abdomen and pelvis with contrast. Radiation optimization: All CT scans at this facility use at least one of these dose optimization techniques: automated exposure control; mA and/or kV adjustment per patient size (includes targeted exams where dose is matched to clinical indication); or iterative reconstruction. Contrast material: OMNIPAQUE 300; Contrast volume: 90 ml; Contrast route: INTRAVENOUS (IV); COMPARISON: CT abdomen pelvis wo con [id number] 04/16/2020 1:06 AM RADIATION DOSE METRICS: Total DLP (mGy-cm): 2748.01 FINDINGS: Lungs: Right lower lobe 7.4 mm pulmonary nodule similar dating back to 06/29/2019, likely benign given stability. Diaphragm: Small hiatal hernia. Liver: Normal. No mass. Gallbladder and bile ducts: Cholecystectomy. Pancreas: Normal. No ductal dilation. Spleen: Normal. No splenomegaly. Adrenal glands: Normal. No mass. Kidneys and ureters: Left kidney cyst, negative for follow up. Stomach and bowel: Unremarkable. No obstruction. No mucosal thickening. Appendix: No evidence of appendicitis. Intraperitoneal space: Unremarkable. No free air. No significant fluid collection. Vasculature: Unremarkable. No abdominal aortic aneurysm. Lymph nodes: Unremarkable. No enlarged lymph nodes. Urinary bladder: Unremarkable as visualized. Reproductive: Unremarkable as visualized. Bones/joints: Unremarkable. No acute fracture. Soft tissues: Left kidney inguinal hernia containing omentum without bowel. CT/CT abdomen pelvis w con* [id number] IMPRESSION: 1. Negative for acute inflammatory process in the abdomen or pelvis. Negative for contrast extravasation seen to suggest a source of rectal bleeding as in provided history. 2. Right lower lobe 7.4 mm pulmonary nodule similar dating back to 06/29/2019, likely benign given stability. 3. Small hiatal hernia. 4. Cholecystectomy. 5. Left kidney cyst, negative for follow up. 6. Left kidney inguinal hernia containing omentum without bowel.
[2022-05-03] MEDS: sodium chloride 0.9% 1,000 ML 999 ML IV (17:34)
[2022-05-03 17:37] LABS: Hematocrit 49.4 % (37.0-47.0); Hemoglobin 17.1 g/dL (11.5-15.3); Mean Corpuscular HGB Conc 34.6 g/dL (30.0-36.0); Mean Corpuscular Hemoglobin 30.1 pg (28.0-34.0); Mean Corpuscular Volume 86.8 fl (81-99); Mean Platelet Volume 10.8 fL (7.4-10.4); Platelet Count 359 10^3/cmm (130-400); Red Blood Count 5.69 10^6/uL (4.1-5.3); Red Cell Distribution Width 13.6 % (12.1-15.1); White Blood Count 14.2 10^3/uL (4.0-10.0)
[2022-05-03 17:41] VITALS: BP 148/93; PULSE 113; RESP 98; O2SAT 99
[2022-05-03 17:55] LABS: Urine Appearance Clear (CLEAR); Urine Color Yellow (Yellow)
[2022-05-03 17:56] LABS: Add Urine Microscopic? YES; Bilirubin Urine 1+ (Negative); Blood Urine Neg (Negative); Glucose Urine UA Norm (Normal); Ketones Urine 1+ (Negative); Leukocyte Esterase Urine Negative (Negative); Nitrate Urine Negative (Negative); Protein Urine Trace (Negative); RBC Urine 0-4 /hpf (0-2); Specific Gravity, Urine 1.025 (1.005-1.030); Urobilinogen Urine 1 mg/dL (Negative); WBC Urine 0-4 /hpf (0-5); pH Urine 5 (5-7)
[2022-05-03 17:57] LABS: Add Urine Culture? No; Amorphous Sediment Urine TRACE /hpf; Bacteria Urine TRACE /hpf; Mucus Urine 4+ /hpf
[2022-05-03 18:05] VITALS: RESP 30; O2SAT 98
[2022-05-03 18:05] LABS: Total Cells Counted 100 (0-100)
[2022-05-03] MEDS: ondansetron 2 mg/ML SDV 2 mL 4 MG IVP (18:05)
[2022-05-03] MEDS: morphine 4 mg/mL SDV 1 mL IVP (18:05)
[2022-05-03 18:06] LABS: Absolute Neutrophil 8.2 10^3/cmm (1.4-6.5); Band Neutrophils Absolute 0.3 10^3/cmm (0.0-1.2); Eosinophils 0 %; Giant Platelets Trace; Lymphocytes 27 %; Lymphocytes Absolute 4.7 10^3/cmm (1.2-3.4); Monocytes Absolute 1.3 10^3/cmm (0.1-0.6); Platelet Estimate Normal (Normal); Segmented Neutrophils 56 %
[2022-05-03 18:11] LABS: Albumin Level 4.5 g/dL (3.5-5.2); Alkaline Phosphatase 142 IU/L (35-105); Blood Urea Nitrogen 17 mg/dL (6-20); Calcium 9.5 mg/dL (8.5-10.5); Carbon Dioxide 19 mmol/L (22-29); Chloride 95 mmol/L (98-107); Globulin 3.7 g/dL (1.3-4.6); Glomerular Filtration Rate 53.2 mL/min (90-130); Glucose 157 mg/dL (65-115); Osmolality Calculated 283 mOsm/kg (285-295); Sodium 134 mmol/L (136-145); Total Bilirubin 0.6 mg/dL (0.15-1.2); Total Protein 8.2 g/dL (6.6-8.7)
[2022-05-03 18:17] LABS: Alanine Aminotransferase 37 U/L (0-33); Anion Gap 24.3 (5-19); Aspartate Amino Transferase 29 U/L (0-32); Potassium 4.3 mmol/L (3.5-5.1)
[2022-05-03] MEDS: iohexol 300 mg/mL 100 mL Btl IV (18:30)
--- NOTE | 2022-05-03 18:38 | PC.NURSE ---
[address] via cart
[2022-05-03 18:41] VITALS: BP 122/97; PULSE 117; RESP 28; O2SAT 98
[2022-05-03 18:45] VITALS: RESP 28; O2SAT 98
[2022-05-03] MEDS: HYDROmorphone 1 mg/mL INJ 1 mL IVP (18:45)
--- NOTE | 2022-05-04 07:16 | DCPLANNER ---
Addendum entered by Allyson Holley 05/11/22 07:44: manager coding was told by general surgery clinic that clinic attempted 3 times to call patient and unable to leave message. mailing out patient a letter to have them contact clinic to schedule an appointment. Original Note: manager coding had message to schedule a follow up appointment for patient with general surgery. manager coding sent patients information to the front office staff at general surgery. Patients information will be printed and reviewed. Clinic will call patient with appointment information.
== END 2022-05-03 20:24 | disposition home or self-care (01) ==
PROVIDERS: Family Medicine; Emergency Provider Emergency Medicine; PCP Nurse Practitioner Family
DX: K64.9 Unspecified hemorrhoids (principal); R10.9 Unspecified abdominal pain
CPT/HCPCS: 74177; 80053; 81001; 85007; 85025; 96361; 96374; 96375; 99284; J1170; J2270; J2405; J7030; Q9967

== ENCOUNTER → 2022-09-06 09:59 | Outpatient (BNVA) | payer MEDICARE, MEDICAID, SELFPAY | PROVIDERS: PCP Nurse Practitioner Family; Visit Provider Nurse Practitioner Family | DX: E11.9 Type 2 diabetes mellitus without complications (principal); K21.9 Gastro-esophageal reflux disease without esophagitis; F41.9 Anxiety disorder, unspecified; F32.9 Major depressive disorder, single episode, unspecified; I10 Essential (primary) hypertension; R60.0 Localized edema; D50.9 Iron deficiency anemia, unspecified; M54.2 Cervicalgia; E78.5 Hyperlipidemia, unspecified; R06.02 Shortness of breath; K21.00 Gastro-esophageal reflux disease with esophagitis, without bleeding; F17.200 Nicotine dependence, unspecified, uncomplicated; G47.33 Obstructive sleep apnea (adult) (pediatric) | CPT/HCPCS: 80053; 80061; 83036; 84443; 85025 ==

== ENCOUNTER → 2022-11-28 10:56 | Outpatient (BNVA) | payer MEDICARE, MEDICAID, SELFPAY | PROVIDERS: PCP Nurse Practitioner Family; Visit Provider Nurse Practitioner Family | DX: M17.0 Bilateral primary osteoarthritis of knee (principal); M25.561 Pain in right knee; M25.562 Pain in left knee | CPT/HCPCS: 73562 ==

== ENCOUNTER → 2023-03-19 11:12 | Outpatient (BNVA) | payer MEDICARE, MEDICAID, SELFPAY | PROVIDERS: PCP Nurse Practitioner Family; Visit Provider Nurse Practitioner Family | DX: E11.9 Type 2 diabetes mellitus without complications (principal) | CPT/HCPCS: 80053; 80061; 83036; 84443; 85025 ==

== ENCOUNTER 2023-04-26 12:30 | Emergency (ER) | payer MEDICARE, MEDICAID, SELFPAY ==
[2023-04-26] VITALS (8 sets, daily range): BP systolic 125–194; BP diastolic 61–112; PULSE 80–100; RESP 16–20; TEMP 36.6–36.9; O2SAT 96–98; BMI 58.2
[2023-04-26 14:29] LABS: Basophils # 0.1 10^3/uL (0.0-0.1); Basophils % 0.9 %; Eosinophils # 0.4 10^3/uL (0.0-0.8); Eosinophils % 2.9 %; Lymphocytes # 2.8 10^3/uL (0.8-4.8); Lymphocytes % 22.7 %; Mean Corpuscular HGB Conc 31.7 g/dL (30.0-36.0); Mean Corpuscular Hemoglobin 29.9 pg (28.0-34.0); Mean Corpuscular Volume 94.3 fl (81-99); Mean Platelet Volume 11.8 fL (7.4-10.4); Monocytes # 0.8 10^3/uL (0.2-0.9); Monocytes % 6.6 %; Neutrophils # 8.33 10^3/uL (1.8-7.7); Neutrophils % 66.6 %; Nucleated Red Blood Cells % 0 %; Platelet Count 240 10^3/cmm (130-400); Red Blood Count 4.35 10^6/uL (4.1-5.3); Red Cell Distribution Width 13.8 % (12.1-15.1); White Blood Count 12.5 10^3/uL (4.0-10.0)
--- NOTE | 2023-04-26 19:20 | ED_ITS ---
HPI - Female Genitourinary General: Chief complaint: Vaginal Bleeding Stated complaint: urogenital bleeding Time Seen by Provider: 04/26/23 17:45 History of Present Illness: Patient is then reporting heavy vaginal bleeding since Mother's Day. She states that she had not had a period in 3 months thinking she was going through menopause and then started and has not stopped since Mother's Day. She reports heavy bleeding with large clots. She denies any dizziness, shortness of breath, weakness. She denies . She is not on any blood thinning medications. Associated symptoms: Deny abdominal pain, headache(s), nausea or syncope Review of Systems Const: Denies: fever(s), chills or body aches Eyes: Denies: change in vision or blurry vision Card: Denies: chest pain, palpitations, irregular heart rhythm, lightheadedness or syncope Resp: Denies: dyspnea, productive cough or non-productive cough GI: Denies: abdominal pain, nausea or vomiting : Reports: vaginal bleeding and irregular period Musc: Denies: neck pain or back pain Neuro: Denies: headache(s), numbness in extremities or weakness in extremities PFSH ED PFSH: Medical History Anxiety and depression Essential (primary) hypertension GERD (gastroesophageal reflux disease) Hyperlipemia Severe obstructive sleep apnea Type 2 diabetes mellitus without complications Surgical History History of back surgery History of cholecystectomy History of tubal ligation Status post colonoscopy Family History Other Diabetes Heart disease Social History Smoking and tobacco status: current every day smoker Second hand smoke exposure: Yes Smoking risk assessment/counseling performed?: Yes Alcohol intake: current Alcohol intake frequency: holidays/special occasions only Desire information about alcohol rehabilitation?: No Counseling given: No Substance/Drug Use: never Desire information about substance/drug rehabilitation?: No Counseling given: No Adopted: No Caregiver/support person: No Lives independently: Yes Household members: children Housing: House Marital status: Legally Number of children: 3 service: No Current occupational status: disabled Pets and animals: Yes Do you think of yourself as: Straight/Heterosexual Current gender identity: Female Physical Exam Const: COMMON NORMALS: no acute distress GENERAL APPEARANCE: cooperative ORIENTATION/CONSCIOUSNESS: Yes awake Resp: COMMON NORMALS: normal respiratory effort, No retractions, No use of accessory muscles and clear to auscultation bilaterally EFFORT & INSPECTION: Yes symmetric chest movement AUSCULTATION: clear to auscultation bilaterally Cardio: COMMON NORMALS: regular rate, regular rhythm, S1 normal heart sound present and S2 normal heart sound present RATE: regular rate RHYTHM: regular rhythm HEART SOUNDS: S1 normal heart sound present and S2 normal heart sound present GI: COMMON NORMALS: Normal to inspection, nondistended, normoactive bowel sounds present, Soft to palpation, non-tender, No hepatosplenomegaly present, no masses and no bruits INSPECTION: Yes normal to inspection PALPATION: Yes Soft to palpation and Yes No hepatosplenomegaly present : COMMON NORMALS: Yes no CVA tenderness, Yes normal external appearance, Yes normal appearance of the vagina and Yes normal appearance of the cervix BLADDER/KIDNEY EXAM: Yes no CVA tenderness OTHER: Patient with mild to moderate vaginal bleeding no clots. Patient has only changed a pad twice in 6 hours here. When she took her depends off for vaginal exam there was scant blood. Speculum exam is limited due to patient's body habitus however I do not visualize any lacerations or active lesions that are bleeding. Blood appears to be coming from cervical os. Bimanual exam is limited by patient's body habitus. Unable to palpate adnexa. No pain on bimanual exam no cervical motion tenderness. Back/Pelvis: COMMON NORMALS: no CVA tenderness Course Vital Signs: Vital signs: Vital Signs Temperature 97.9 F 04/26/23 16:30 Pulse Rate 88 04/26/23 19:48 Respiratory Rate 18 04/26/23 18:15 Blood Pressure 154/87 04/26/23 18:15 Pulse Oximetry 96 04/26/23 19:48 Oxygen Delivery Me thod Room Air 04/26/23 12:39 MDM - Female Medical Decision Making Patient is in for abnormal menstrual cycle. She states that she had went 3 months without having a menstrual cycle felt like she was entering into menopause and then she started her period on Mother's Day. She states that she has not had any stop in the bleeding since that time. She denies any dizziness lightheadedness. She states that she is feeling well except for she is bleeding heavily. Hemoglobin is 13 which is stable. White count is slightly elevated however this is pretty consistent with previous white blood cell count results. No systemic symptoms to indicate infection. Advised patient that I would refer her to [facility] for further evaluation of dysfunctional uterine bleeding follow-up with her primary care provider. Return to the ER for new or worsening symptoms including, but not limited to worsening vaginal bleeding dizziness, lightheadedness Lab Data 04/26/23 13:55 Laboratory Results WBC 12.5 10^3/uL (4.0-10.0) H 04/26/23 13:55 RBC 4.35 10^6/uL (4.1-5.3) 04/26/23 13:55 Hgb 13.0 g/dL (11.5-15.3) 04/26/23 13:55 Hct 41.0 % (37.0-47.0) 04/26/23 13:55 MCV 94.3 fl (81-99) 04/26/23 13:55 MCH 29.9 pg (28.0-34.0) 04/26/23 13:55 MCHC 31.7 g/dL (30.0-36.0) 04/26/23 13:55 RDW 13.8 % (12.1-15.1) 04/26/23 13:55 Plt Count 240 10^3/cmm (130-400) 04/26/23 13:55 MPV 11.8 fL (7.4-10.4) H 04/26/23 13:55 Neut % (Auto) 66.6 % 04/26/23 13:55 Lymph % (Auto) 22.7 % 04/26/23 13:55 [place] % (Auto) 6.6 % 04/26/23 13:55 Eos % (Auto) 2.9 % 04/26/23 13:55 Baso % (Auto) 0.9 % 04/26/23 13:55 Neut # (Auto) 8.33 10^3/uL (1.8-7.7) H 04/26/23 13:55 Lymph # (Auto) 2.8 10^3/uL (0.8-4.8) 04/26/23 13:55 [place] # (Auto) 0.8 10^3/uL (0.2-0.9) 04/26/23 13:55 Eos # (Auto) 0.4 10^3/uL (0.0-0.8) 04/26/23 13:55 Baso # (Auto) 0.1 10^3/uL (0.0-0.1) 04/26/23 13:55 Nucleated RBC % (auto) 0 % 04/26/23 13:55 Nucleated RBCs # 0.0 /100WBC 04/26/23 13:55 Discharge Plan Discharge Patient Disposition: Home Clinical Impression: Dysfunctional uterine bleeding Condition: Stable Prescriptions: No Action fluticasone propionate 110 mcg/actuation HFA aerosol inhaler 2 puff INHALATION BID PRN (Reason: Shortness Of Breath) Rx Instructions: pt states she has not kept any of her medications down since . (DME) blood pressure test kit-large Kit See Rx Instructions .ROUTE .MEDSUPPLY Qty: 1 0RF Rx Instructions: As directed lactulose 10 gram/15 mL solution 15 ml PO BID 28 Days Qty: 840 0RF erythromycin 5 mg/gram (0.5 %) ointment 0.5 inch ophthalmic (eye) TID Qty: 3.5 0RF (DME) lancets 26 gauge misc See Rx Instructions .Route Qty: 100 2RF Rx Instructions: use 1 daily (DME) ReliOn Prime Test Strips Strip See Rx Instructions .Route Qty: 100 2RF Rx Instructions: use 1 daily lidocaine HCl-hydrocortison ac 3-0.5 % cream 1 applic TN BID Qty: 7 2RF nicotine [Nicoderm CQ] 21 mg/24 hr patch 24 hour 1 patch transdermal DAILY 28 Days Qty: 28 0RF trazodone 50 mg tablet 50 mg PO BEDTIME Qty: 30 2RF pantoprazole [Protonix] 20 mg tablet,delayed release (DR/EC) 20 mg PO BID Qty: 60 2RF metformin 500 mg tablet extended release 24 hr 500 mg PO BID 30 Days Qty: 60 2RF lisinopril 40 mg tablet 40 mg PO DAILY 30 Days Qty: 30 2RF hydroxyzine pamoate 25 mg capsule 25 mg PO BID PRN (Reason: itching) Qty: 60 2RF furosemide 20 mg tablet 20 mg PO BID 30 Days Qty: 60 2RF ferrous gluconate 324 mg (38 mg iron) tablet 324 mg PO BID 30 Days Qty: 60 2RF celecoxib [Celebrex] 200 mg capsule 200 mg PO BID PRN (Reason: pain) Qty: 60 2RF buspirone 30 mg tablet 30 mg PO BID 30 Days Qty: 60 2RF bupropion HCl [Wellbutrin SR] 150 mg tablet sustained-release 12 hr 150 mg PO BID Qty: 60 2RF budesonide-formoterol [Symbicort] 160-4.5 mcg/actuation HFA aerosol inhaler 2 puff inhalation BID Qty: 10.2 2RF atorvastatin 20 mg tablet 20 mg PO DAILY Qty: 30 2RF amlodipine 5 mg tablet 5 mg PO DAILY 30 Days Qty: 30 2RF albuterol sulfate [Ventolin HFA] 90 mcg/actuation HFA aerosol inhaler 2 puff inhalation QID PRN (Reason: shortness of breath or wheezing) 30 Days Qty: 6.7 2RF methocarbamol 500 mg tablet 500 mg PO BID Qty: 60 2RF (DME) cpap See Rx Instructions .Route .MEDSUPPLY Qty: 1 0RF Rx Instructions: As directed auto titrating cpap 7-11 and supplies npi [id number] months (DME) lancets [ReliOn Thin Lancets] 26 gauge misc See Rx Instructions .Route Qty: 100 3RF Rx Instructions: As directed Tylenol 325 mg Tablet 325 mg PO QID PRN (Reason: Pain) ibuprofen 200 mg Tablet 200 mg PO Q6H PRN (Reason: Pain) Reglan 10 mg tablet 10 mg PO Q6H PRN (Reason: nausea and vomiting) Qty: 20 0RF Proctofoam 1 % foam 1 applic TN BID Qty: 15 0RF Discharge Orders: Discharge ED (Routine); Ordered 04/26/23 Ordered By: Mery Burton Referrals: Jessy Cason FNP-C [Primary Care Provider] - Discharge Diet: Usual diet Discharge Activity: Resume usual activity Patient Instructions: Abnormal (Dysfunctional) Uterine Bleeding (ED) Activity Restrictions/Additional Instructions: Make sure that you are staying well-hydrated. Follow-up with [facility] and primary care next week. Return to the ER for worsening bleeding, dizziness, lightheadedness, increased pain, or any new or worsening Coding Level of Care Code ED Sales Solutions Representative for Stef Esqueda
--- NOTE | 2023-04-29 09:07 | DCPLANNER ---
Addendum entered by Allyson Holley 05/02/23 13:44: Patient had a follow up at [facility] on 05.01.23 - patient did attend appointment Original Note: manager mail had message to schedule a follow up appointment for patient with [facility]. manager mail sent patients information to the front office staff at [facility]. Patients information will be printed and reviewed. Clinic will call patient with appointment information.
== END 2023-04-26 19:49 | disposition home or self-care (01) ==
PROVIDERS: Physician Assistant; Emergency Provider Nurse Practitioner Family; PCP Nurse Practitioner Family
DX: N93.8 Other specified abnormal uterine and vaginal bleeding (principal); F17.210 Nicotine dependence, cigarettes, uncomplicated; I10 Essential (primary) hypertension; E78.5 Hyperlipidemia, unspecified; E11.9 Type 2 diabetes mellitus without complications
CPT/HCPCS: 85025; 99283

== ENCOUNTER 2023-04-30 14:17 | Outpatient (CLI) | payer MEDICARE, MEDICAID, SELFPAY ==
--- NOTE | 2023-04-30 15:15 | US_ITS ---
WS: [id number] US pelv w/transvag [id number] HISTORY: Heavy vaginal bleeding. COMPARISON: 05/05/2019 Uterus: 9.5 cm x 4.7 cm x 4.2 cm. Normal size anteverted uterus. No fibroid or mass. Fundal portion of the uterus is very poorly visual ized due to enlargement and body habitus. No fibroids identified. Endometrium: 1.1 cm. Poorly and incompletely visualized due to body habitus. No abnormality identifie d. Neither ovary is identified. No adnexal mass.No free fluid US/US pelv w/transvag [id number] IMPRESSION: 1. Technically very difficult evaluation of the pelvic structures due to body habitus. 2. Uterus is slightly enlarged. The fundus is not well visualized. Otherwise n egative. 3. Poor and incomplete visualization of the endometrium. 4. Neither ovary is identified.
== END 2023-04-30 14:18 | disposition home or self-care (01) ==
LOC: RAD 14:22
PROVIDERS: PCP Nurse Practitioner Family; Visit Provider Nurse Practitioner
DX: N93.8 Other specified abnormal uterine and vaginal bleeding (principal); E11.9 Type 2 diabetes mellitus without complications; D64.9 Anemia, unspecified; N85.2 Hypertrophy of uterus
CPT/HCPCS: 76830; 76856; 80053; 85025

== ENCOUNTER → 2023-11-12 12:38 | Outpatient (BNVA) | payer MEDICARE, MEDICAID, SELFPAY | PROVIDERS: PCP Nurse Practitioner Family; Visit Provider Nurse Practitioner Family | DX: I10 Essential (primary) hypertension (principal); E78.5 Hyperlipidemia, unspecified; F41.9 Anxiety disorder, unspecified; F32.9 Major depressive disorder, single episode, unspecified; M19.90 Unspecified osteoarthritis, unspecified site; D50.9 Iron deficiency anemia, unspecified; R60.0 Localized edema; E11.9 Type 2 diabetes mellitus without complications; K21.9 Gastro-esophageal reflux disease without esophagitis; M54.9 Dorsalgia, unspecified; G89.29 Other chronic pain; Z98.890 Other specified postprocedural states; K21.00 Gastro-esophageal reflux disease with esophagitis, without bleeding; G47.9 Sleep disorder, unspecified; D50.8 Other iron deficiency anemias; G47.33 Obstructive sleep apnea (adult) (pediatric); M54.40 Lumbago with sciatica, unspecified side | CPT/HCPCS: 85025 ==

== ENCOUNTER → 2024-04-01 08:21 | Outpatient (BNVA) | payer MEDICARE, MEDICAID, SELFPAY | PROVIDERS: PCP Nurse Practitioner Family; Visit Provider Nurse Practitioner Family | DX: E11.9 Type 2 diabetes mellitus without complications (principal) | CPT/HCPCS: 80053; 80061; 83036; 84443 ==

== ENCOUNTER → 2024-08-07 09:01 | Outpatient (BNVA) | payer MEDICARE, MEDICAID, SELFPAY | PROVIDERS: PCP Nurse Practitioner Family; Visit Provider Nurse Practitioner Family | DX: E11.9 Type 2 diabetes mellitus without complications (principal); E78.5 Hyperlipidemia, unspecified | CPT/HCPCS: 80053; 80061; 83036; 84443; 85025 ==

== ENCOUNTER 2024-11-01 00:33 | Emergency (ER) | payer MEDICARE, MEDICAID, SELFPAY ==
[2024-11-01 00:35] VITALS: BP 147/83; PULSE 80; RESP 18; TEMP 36.7; O2SAT 95
--- NOTE | 2024-11-01 01:50 | ED_ITS ---
HPI - Abdominal Pain 2 General: Chief Complaint: Abdominal Pain Stated Complaint: n/v Time Seen by Provider: 11/01/24 01:16 History of Present Illness: 48-year-old female who says she has had vomiting with some diarrhea and generalized abdominal pain for the last 2 days. She has vomited multiple times today. She said a few episodes of diarrhea. No definite blood in the stool. No fever. Generalized belly pain. She has a history of cholecystectomy, tubal ligation. She received Zofran and promethazine en route to the hospital via ambulance. Related Data Home Medications Medication Instructions Recorded Confirmed fluticasone propionate 110 2 puff inhalation BID PRN 02/10/20 08/07/24 mcg/actuation HFA aerosol inhaler Shortness Of Breath acetaminophen 325 mg tablet 325 mg PO QID PRN Pain 05/16/20 08/07/24 (Tylenol) ibuprofen 200 mg tablet 200 mg PO Q6H PRN Pain 05/16/20 08/07/24 Previous Rx's Medication Instructions Recorded cpap #1 ea 08/03/20 blood pressure test kit-large #1 ea 09/20/20 lactulose 10 gram/15 mL oral 15 ml PO BID 4 weeks #840 mL 08/29/21 solution lidocaine 3 %-hydrocortisone 0.5 % 1 applic VA BID #7 grams 05/02/22 rectal cream metoclopramide HCl 10 mg tablet 10 mg PO Q6H PRN nausea and 05/03/22 (Reglan) vomiting #20 tabs pramoxine 1 % topical foam 1 applic VA BID #15 grams 05/03/22 (Proctofoam) erythromycin 5 mg/gram (0.5 %) eye 0.5 inch ophthalmic (eye) TID #3.5 07/17/22 ointment (3.5 gram tube) grams lancets 26 gauge #100 ea 09/06/22 norethindrone 1 mg-ethinyl 2 tab PO DAILY #84 tabs 05/01/23 estradiol 35 mcg tablet (Pirmella) bupropion HCl 150 mg tablet,12 hr 150 mg PO BID #60 tabs 04/02/24 sustained-release (Wellbutrin SR) albuterol sulfate 2.5 mg/3 mL 2.5 mg (3 mL) inhalation QID PRN 08/07/24 (0.083 %) solution for nebulization shortness of breath or wheezing #75 mL albuterol sulfate 90 mcg/actuation 2 puff inhalation QID PRN 08/07/24 aerosol inhaler (Ventolin HFA) shortness of breath or wheezing 30 days #6.7 grams amlodipine 5 mg tablet 5 mg PO DAILY 30 days #30 tabs 08/07/24 atorvastatin 20 mg tablet 20 mg PO DAILY #30 tabs 08/07/24 blood sugar diagnostic (ReliOn #100 ea 08/07/24 Prime Test Strips) budesonide-formoterol HFA 160 2 puff inhalation BID #10.2 grams 08/07/24 mcg-4.5 mcg/actuation aerosol inhaler (Symbicort) buspirone 30 mg tablet 30 mg PO BID 30 days #60 tabs 08/07/24 celecoxib 200 mg capsule (Celebrex) 200 mg PO BID PRN pain #60 caps 08/07/24 compressor, for nebulizer #1 ea 08/07/24 escitalopram oxalate 20 mg tablet 20 mg PO DAILY #30 tabs 08/07/24 ferrous gluconate 324 mg (38 mg 324 mg PO BID 30 days #60 tabs 08/07/24 iron) tablet furosemide 20 mg tablet 20 mg PO BID 30 days #60 tabs 08/07/24 gabapentin 400 mg capsule 400 mg PO TID #90 caps 08/07/24 hydroxyzine pamoate 25 mg capsule 25 mg PO BID PRN itching #60 caps 08/07/24 lancets 26 gauge #100 ea 08/07/24 lisinopril 40 mg tablet 40 mg PO DAILY 30 days #30 tabs 08/07/24 methocarbamol 500 mg tablet 500 mg PO BID #60 tabs 08/07/24 pantoprazole 20 mg tablet,delayed 20 mg PO BID #60 tabs 08/07/24 release (Protonix) prednisone 10 mg tablets in a dose See Rx Instructions PO PER PKG DIR 08/07/24 pack #21 ea trazodone 100 mg tablet 100 mg PO BEDTIME #30 tabs 08/07/24 metformin 500 mg tablet,extended 1,000 mg (2 x 500 mg) PO BID 30 08/10/24 release 24 hr days #120 tabs ondansetron 4 mg disintegrating 4 mg PO Q6H PRN nausea and 12/01/24 tablet vomiting #14 tabs Allergies Allergy/AdvReac Type Severity Reaction Status Date / Time aspirin Allergy Unknown Verified 11/01/24 00:42 nitrofurantoin Allergy Unknown Verified 11/01/24 00:42 [From Macrobid] [facility] [place] [facility] 2 PFSH: Medical History Hyperlipemia Severe obstructive sleep apnea Anxiety and depression Essential (primary) hypertension GERD (gastroesophageal reflux disease) Type 2 diabetes mellitus without complications Surgical History Status post colonoscopy History of tubal ligation History of back surgery History of cholecystectomy Family History Other Diabetes Heart disease Social History Smoking and tobacco/nicotine status: current every day tobacco/nicotine user Second hand smoke exposure: Yes Alcohol intake: current Alcohol intake frequency: holidays/special occasions only Substance/Drug Use: never Adopted: No Caregiver/support person: No Lives independently: Yes Household members: children Housing: House Marital status: Legally Number of children: 3 service: No Current occupational status: disabled Pets and animals: Yes Do you think of yourself as: Straight/Heterosexual Current gender identity: Female Physical Exam 2 Const: COMMON NORMALS: no acute distress GENERAL APPEARANCE: cooperative; not ill appearing and not frail appearing HENMT: COMMON NORMALS: normocephalic, atraumatic and Normal external nose present HEAD & SCALP: normocephalic and atraumatic FACE & SINUS: normal facial exam and face symmetric NOSE: Normal external nose present Eye: COMMON NORMALS: Equal, round and reactive pupils present and EOMs intact bilaterally PUPIL: Yes Equal, round and reactive pupils present Neck/C-Spine: GENERAL: Yes trachea midline Chest: CHEST: Yes Symmetrical chest wall rise Resp: COMMON NORMALS: normal respiratory effort, No retractions, No use of accessory muscles and clear to auscultation bilaterally AUSCULTATION: clear to auscultation bilaterally Cardio: COMMON NORMALS: regular rate and regular rhythm RATE: regular rate RHYTHM: regular rhythm GI: COMMON NORMALS: Normal to inspection, nondistended, normoactive bowel sounds present and Soft to palpation PALPATION: Yes Soft to palpation and Yes Tenderness to palpation present (GI) Details: LLQ Extremity: COMMON NORMALS: no pedal edema Neuro: EMILIA COMA SCALE: document GCS findings Badger coma scale eye opening: Spontaneous Emilia coma scale verbal response: Orientated Emilia coma scale motor response: Obey commands Emilia coma scale total score: 15 S ENSORY EXAM: Yes extremities (intact) Psych: COMMON NORMALS: speech normal SPEECH: Yes normal speech Skin: COMMON NORMALS: no rashes or lesions noted GENERAL SKIN EXAM: no rashes or lesions noted Course 2 Vital Signs: Vital signs: Vital Signs Temperature 98.0 F 11/01/24 00:35 Pulse Rate 75 11/01/24 04:20 Respiratory Rate 17 11/01/24 04:20 Blood Pressure 140/76 11/01/24 04:20 Pulse Oximetry 93 11/01/24 04:20 Oxygen Delivery Me thod Room Air 11/01/24 04:20 MDM - Abdominal Pain Medical Decision Making Potassium is 3.0. White blood cell count is 16. Vitals have been stable. She is given potassium. GI cocktail. Nausea is improved. She will be discharged. Return for worsening symptoms. Lab Data 11/01/24 01:51 11/01/24 01:51 Labs/Radiology: Radiology Impressions Abdomen/Pelvis CT 11/01/24 02:59 IMPRESSION: No acute findings. COMMENTS: 1. Consistent with the [employer]'s Incidental Findings Committee white paper (J Am Jone Radiol 2017): Any incidental adrenal lesion less than 1 cm is likely benign. No follow-up imaging is recommended for these lesions per consensus recommendations based on imaging criteria. Further lab evaluation could be pursued if warranted based on clinical findings. 2. Consistent with the [employer]'s Incidental Findings Committee white paper (J Am Jone Radiol 2018): Any incidental renal lesion less than 1 cm or classified as too small to characterize, or any incidental cystic renal lesion characterized as simple-appearing, is likely benign. No follow-up imaging is recommended for these lesions per consensus recommendations based on imaging criteria. Laboratory Results WBC 15.78 10^3/uL (3.29-11.43) H 11/01/24 01:51 RBC 5.31 10^6/uL (3.85-5.65) 11/01/24 01:51 Hgb 15.50 g/dL (11.27-16.99) 11/01/24 01:51 Hct 46.3 % (36-47) 11/01/24 01:51 MCV 87.2 fl (85-98) 11/01/24 01:51 MCH 29.2 pg (27-33) 11/01/24 01:51 MCHC 33.5 g/dL (30-55) 11/01/24 01:51 RDW 13.7 % (12.1-15.1) 11/01/24 01:51 Plt Count 328 10^3/cmm (157-399) 11/01/24 01:51 MPV 10.8 fL (7.4-10.4) H 11/01/24 01:51 Neut % (Auto) 64.0 % 11/01/24 01:51 Lymph % (Auto) 26.5 % 11/01/24 01:51 [place] % (Auto) 7.9 % 11/01/24 01:51 Eos % (Auto) 0.3 % 11/01/24 01:51 Baso % (Auto) 0.9 % 11/01/24 01:51 Neut # (Auto) 10.12 10^3/uL (1.8-7.7) H 11/01/24 01:51 Lymph # (Auto) 4.2 10^3/uL (0.8-4.8) 11/01/24 01:51 [place] # (Auto) 1.2 10^3/uL (0.2-0.9) H 11/01/24 01:51 Eos # (Auto) 0.0 10^3/uL (0.0-0.8) 11/01/24 01:51 Baso # (Auto) 0.1 10^3/uL (0.0-0.1) 11/01/24 01:51 Nucleated RBC % (auto) 0 % 11/01/24 01:51 Nucleated RBCs # 0.0 /100WBC 11/01/24 01:51 Sodium 139 mmol/L (136-145) 11/01/24 01:51 Potassium 3.0 mmol/L (3.5-5.1) L 11/01/24 01:51 Chloride 100 mmol/L (98-107) 11/01/24 01:51 Carbon Dioxide 24 mmol/L (22-29) 11/01/24 01:51 Anion Gap 18.0 (5-19) 11/01/24 01:51 BUN 15 mg/dL (6-20) 11/01/24 01:51 Creatinine 0.8 mg/dL (0.5-0.9) 11/01/24 01:51 GFR Calculation 76.2 mL/min (90-130) L 11/01/24 01:51 Glucose 178 mg/dL (65-115) H 11/01/24 01:51 Calculated Osmolality 293 mOsm/kg (285-295) 11/01/24 01:51 Calcium 9.2 mg/dL (8.5-10.5) 11/01/24 01:51 Total Bilirubin 0.6 mg/dL (0.15-1.2) 11/01/24 01:51 AST 16 U/L (0-32) 11/01/24 01:51 ALT 17 U/L (0-33) 11/01/24 01:51 Alkaline Phosphatase 120 U/L (35-105) H 11/01/24 01:51 C-Reactive Protein 8.1 mg/L (0.0-4.9) H 11/01/24 01:51 Total Protein 7.2 g/dL (6.6-8.7) 11/01/24 01:51 Albumin 4.0 g/dL (3.5-5.2) 11/01/24 01:51 Globulin 3.2 g/dL (1.3-4.6) 11/01/24 01:51 Lipase 21 U/L (13-60) 11/01/24 01:51 HCG, Qual Negative (Negative) 11/01/24 01:51 All radiology interpretation(s) finalized by discharge Discharge Plan Discharge Patient Disposition: Home Clinical Impression: Intractable vomiting Condition: Stable Prescriptions: New ondansetron 4 mg tablet,disintegrating 4 mg PO Q6H PRN (Reason: nausea and vomiting) Qty: 14 0RF No Action fluticasone propionate 110 mcg/actuation HFA aerosol inhaler 2 puff INHALATION BID PRN (Reason: Shortness Of Breath) Rx Instructions: pt states she has not kept any of her medications down since . (DME) blood pressure test kit-large Kit See Rx Instructions .ROUTE .MEDSUPPLY Qty: 1 0RF Rx Instructions: As directed lactulose 10 gram/15 mL solution 15 ml PO BID 28 Days Qty: 840 0RF erythromycin 5 mg/gram (0.5 %) ointment 0.5 inch ophthalmic (eye) TID Qty: 3.5 0RF (DME) lancets 26 gauge misc See Rx Instructions .Route Qty: 100 2RF Rx Instructions: use 1 daily bupropion HCl [Wellbutrin SR] 150 mg tablet sustained-release 12 hr 150 mg PO BID Qty: 60 2RF gabapentin 400 mg capsule 400 mg PO TID Qty: 90 2RF escitalopram oxalate 20 mg tablet 20 mg PO DAILY Qty: 30 2RF (DME) ReliOn Prime Test Strips Strip See Rx Instructions .Route Qty: 100 2RF Rx Instructions: use 1 daily (DME) lancets 26 gauge misc See Rx Instructions .Route Qty: 100 3RF Rx Instructions: As directed prednisone 10 mg tablets,dose pack See Rx Instructions PO PER PKG DIR Qty: 21 0RF Rx Instructions: PO PER PKG DIR amlodipine 5 mg tablet 5 mg PO DAILY 30 Days Qty: 30 2RF atorvastatin 20 mg tablet 20 mg PO DAILY Qty: 30 2RF buspirone 30 mg tablet 30 mg PO BID 30 Days Qty: 60 2RF celecoxib [Celebrex] 200 mg capsule 200 mg PO BID PRN (Reason: pain) Qty: 60 2RF ferrous gluconate 324 mg (38 mg iron) tablet 324 mg PO BID 30 Days Qty: 60 2RF furosemide 20 mg tablet 20 mg PO BID 30 Days Qty: 60 2RF hydroxyzine pamoate 25 mg capsule 25 mg PO BID PRN (Reason: itching) Qty: 60 2RF lisinopril 40 mg tablet 40 mg PO DAILY 30 Days Qty: 30 2RF methocarbamol 500 mg tablet 500 mg PO BID Qty: 60 2RF pantoprazole [Protonix] 20 mg tablet,delayed release (DR/EC) 20 mg PO BID Qty: 60 2RF trazodone 100 mg tablet 100 mg PO BEDTIME Qty: 30 2RF albuterol sulfate [Ventolin HFA] 90 mcg/actuation HFA aerosol inhaler 2 puff inhalation QID PRN (Reason: shortness of breath or wheezing) 30 Days Qty: 6.7 2RF albuterol sulfate 2.5 mg /3 mL (0.083 %) solution for nebulization 2.5 mg inhalation QID PRN (Reason: shortness of breath or wheezing) Qty: 75 2RF (DME) compressor, for nebulizer Device See Rx Instructions .Route Qty: 1 0RF Rx Instructions: As directed budesonide-formoterol [Symbicort] 160-4.5 mcg/actuation HFA aerosol inhaler 2 puff inhalation BID Qty: 10.2 2RF lidocaine HCl-hydrocortison ac 3-0.5 % cream 1 applic VA BID Qty: 7 2RF Pirmella 1-35 mg-mcg tablet 2 tab PO DAILY Qty: 84 3RF Rx Instructions: Take 2 tablets daily for 5 days then 1 tablet for the remainder of the packet. (DME) cpap See Rx Instructions .Route .MEDSUPPLY Qty: 1 0RF Rx Instructions: As directed auto titrating cpap 7-11 and supplies npi [id number] 99 months metformin 500 mg tablet extended release 24 hr 1,000 mg PO BID 30 Days Qty: 120 2RF Tylenol 325 mg Tablet 325 mg PO QID PRN (Reason: Pain) ibuprofen 200 mg Tablet 200 mg PO Q6H PRN (Reason: Pain) Reglan 10 mg tablet 10 mg PO Q6H PRN (Reason: nausea and vomiting) Qty: 20 0RF Proctofoam 1 % foam 1 applic VA BID Qty: 15 0RF Discharge Orders: Discharge ED (Routine); Ordered 11/01/24 Ordered By: Keanu Arriaza Referrals: Jessy Cason FNP-C [Primary Care Provider] - 1-3 days Patient Instructions: Opioid Safety, Pain Management Activity Restrictions/Additional Instructions: Follow a liquid diet for the next 24 hours. Use medication prescribed every 4 hours while awake for the next 24 hours whether you feel nauseated or not. Return for vomiting despite treatment, fever, worsening pain, other concerning symptoms. Call your doctor tomorrow (Saturday) for a follow-up appointment. Coding Level of Care Code ED Neuropathologist for Stef Esqueda
[2024-11-01 02:04] LABS: Basophils # 0.1 10^3/uL (0.0-0.1); Basophils % 0.9 %; Eosinophils % 0.3 %; Hematocrit 46.3 % (36-47); Lymphocytes # 4.2 10^3/uL (0.8-4.8); Lymphocytes % 26.5 %; Mean Corpuscular HGB Conc 33.5 g/dL (30-55); Mean Corpuscular Hemoglobin 29.2 pg (27-33); Mean Corpuscular Volume 87.2 fl (85-98); Mean Platelet Volume 10.8 fL (7.4-10.4); Monocytes # 1.2 10^3/uL (0.2-0.9); Monocytes % 7.9 %; Neutrophils # 10.12 10^3/uL (1.8-7.7); Nucleated Red Blood Cells % 0 %; Platelet Count 328 10^3/cmm (157-399); Red Blood Count 5.31 10^6/uL (3.85-5.65); Red Cell Distribution Width 13.7 % (12.1-15.1); White Blood Count 15.78 10^3/uL (3.29-11.43)
[2024-11-01 02:11] LABS: HCG, Serum Qual Negative (Negative)
[2024-11-01 02:17] LABS: Alanine Aminotransferase 17 U/L (0-33); Alkaline Phosphatase 120 U/L (35-105); Aspartate Amino Transferase 16 U/L (0-32); Blood Urea Nitrogen 15 mg/dL (6-20); C Reactive Protein 8.1 mg/L (0.0-4.9); Calcium 9.2 mg/dL (8.5-10.5); Carbon Dioxide 24 mmol/L (22-29); Chloride 100 mmol/L (98-107); Creatinine Clr Calc Pharmacy 136.1279; Globulin 3.2 g/dL (1.3-4.6); Glomerular Filtration Rate 76.2 mL/min (90-130); Glucose 178 mg/dL (65-115); Lipase 21 U/L (13-60); Osmolality Calculated 293 mOsm/kg (285-295); Sodium 139 mmol/L (136-145); Total Bilirubin 0.6 mg/dL (0.15-1.2); Total Protein 7.2 g/dL (6.6-8.7)
--- NOTE | 2024-11-01 02:59 | CTR_ITS ---
PROCEDURE INFORMATION: Exam: CT Abdomen And Pelvis With Contrast Exam date and time: 11/01/2024 3:21 AM Age: 48 years old Clinical indication: Pain and abnormal findings; Abnormal lab test; Nausea and vomiting; Abdominal pain; Generalized; Prior surgery; Surgery date: 6+ months; Surgery type: Gb. Lumbar. Tubal. Patient HX: Diffuse abd pain with n/v and elevated wbc. ; Additional info: Abd pain, vomiting, leukocytosis TECHNIQUE: Imaging protocol: Computed tomography of the abdomen and pelvis with contrast. Radiation optimization: All CT scans at this facility use at least one of these dose optimization techniques: automated exposure control; mA and/or kV adjustment per patient size (includes targeted exams where dose is matched to clinical indication); or iterative reconstruction. Contrast material: OMNI 350; Contrast volume: 100 ml; Contrast route: INTRAVENOUS (IV); COMPARISON: CT abdomen pelvis w con* [id number] 05/03/2022 6:29 PM RADIATION DOSE METRICS: Total DLP (mGy-cm): 1167.73 FINDINGS: Diaphragm: There is a small hiatal hernia. Liver: Mild hepatic steatosis noted. Gallbladder and biliary ducts: There has been cholecystectomy. Pancreas: Normal. No ductal dilation. Spleen: Normal. No splenomegaly. Adrenal glands: 8 mm right adrenal nodule noted. This most likely represents adenoma. Mild thickening left adrenal gland. Kidneys and ureters: Small left renal cyst. Kidneys otherwise normal. Stomach and bowel: Mild diverticulosis is noted. No evidence of diverticulitis. No obstruction. Appendix: No evidence of appendicitis. Intraperitoneal space: Unremarkable. No free air. No significant fluid collection. Vasculature: Unremarkable. No abdominal aortic aneurysm. Lymph nodes: Unremarkable. No enlarged lymph nodes. Urinary bladder: Unremarkable as visualized. Reproductive: Unremarkable as visualized. Bones/joints: Unremarkable. No acute fracture. Soft tissues: Small fat containing umbilical hernia without stranding or evidence of incarceration. CT/CT abdomen pelvis w con* [id number] IMPRESSION: No acute findings. COMMENTS: 1. Consistent with the [employer]'s Incidental Findings Committee white paper (J Am Jone Radiol 2017): Any incidental adrenal lesion less than 1 cm is likely benign. No follow-up imaging is recommended for these lesions per consensus recommendations based on imaging criteria. Further lab evaluation could be pursued if warranted based on clinical findings. 2. Consistent with the [employer]'s Incidental Findings Committee white paper (J Am Jone Radiol 2018): Any incidental renal lesion less than 1 cm or classified as too small to characterize, or any incidental cystic renal lesion characterized as simple-appearing, is likely benign. No follow-up imaging is recommended for these lesions per consensus recommendations based on imaging criteria.
[2024-11-01] MEDS: iohexol 350 mg/mL 500 mL Btl (per mL) IV (03:22)
[2024-11-01] MEDS: ondansetron 2 mg/ML SDV 2 mL 4 MG IVP (03:41)
[2024-11-01 03:42] VITALS: RESP 18
[2024-11-01] MEDS: lidocaine 2% viscous 15 ML, aluminum-mag hydrox-simethicon 30 ML, sucralfate oral liq 1 GM PO ×2 (03:42→05:42)
[2024-11-01] MEDS: potassium chloride oral liq 20 mEq/15 mL UDC 40 MEQ PO (03:42)
[2024-11-01] MEDS: morphine 4 mg/mL SDV 1 mL IVP (03:42)
[2024-11-01] MEDS: sodium chloride 0.9% 500 ML 999 ML IV (03:44)
[2024-11-01 04:20] VITALS: BP 140/76; PULSE 75; RESP 17; O2SAT 93
--- NOTE | 2024-11-01 05:05 | ECG_ITS ---
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 Measurements Intervals Sandy Rate: 84 P: 51 NH: 146 QRS: 52 QRSD: 79 T: 52 QT: 405 QTc: 480 Interpretive Statements SINUS RHYTHM LOW QRS VOLTAGE IN PRECORDIAL LEADS [QRS DEFLECTION < 1.0 mV IN CHEST LEADS] Compared to ECG 04/16/2020 08:23:29 No significant changes Electronically Signed On 11-01-2024 18:47:37 [employer]VIVAL EQUIPMENT REPAIRER by lAan Das M.D. [email or web address]
[2024-11-01] MEDS: ondansetron 4 MG Tablet 8 MG PO (05:22)
--- NOTE | 2024-11-01 05:26 | PC.NURSE ---
After giving pt dc instructions and IV DC'd, pt states she is having pressure like pain in epigastric area. MD notified. EKG obtained. Skin W/P/D. PO zofran ordered and given. Pt continues to c/o epigastric pain and is rocking, hunched over on the bed. MD Notified and will see pt.
[2024-11-01] MEDS: haloperidol inj 5 mg/mL INJ 1 mL IM (05:43)
== END 2024-11-01 05:51 | disposition home or self-care (01) ==
PROVIDERS: Emergency Provider Emergency Medicine; PCP Nurse Practitioner Family
DX: R11.10 Vomiting, unspecified (principal); Z79.84 Long term (current) use of oral hypoglycemic drugs; Z72.0 Tobacco use; E11.9 Type 2 diabetes mellitus without complications; E78.5 Hyperlipidemia, unspecified; I10 Essential (primary) hypertension
CPT/HCPCS: 36415; 74177; 80053; 83690; 84703; 85025; 86140; 93005; 96361; 96372; 96374; 96375; 99285; J1630; J2270; J2405; J7040; Q0162

== ENCOUNTER → 2025-01-26 12:12 | Outpatient (BNVA) | payer MEDICARE, MEDICAID, SELFPAY | PROVIDERS: Family Provider Nurse Practitioner Family; PCP Nurse Practitioner Family; Visit Provider Nurse Practitioner Family | DX: K21.9 Gastro-esophageal reflux disease without esophagitis (principal); E11.9 Type 2 diabetes mellitus without complications; I10 Essential (primary) hypertension; F41.9 Anxiety disorder, unspecified; F32.9 Major depressive disorder, single episode, unspecified; R60.0 Localized edema; D50.9 Iron deficiency anemia, unspecified; M19.90 Unspecified osteoarthritis, unspecified site; E78.5 Hyperlipidemia, unspecified; R06.02 Shortness of breath; K21.00 Gastro-esophageal reflux disease with esophagitis, without bleeding; G47.9 Sleep disorder, unspecified; G47.33 Obstructive sleep apnea (adult) (pediatric); M54.9 Dorsalgia, unspecified; G89.29 Other chronic pain; Z98.890 Other specified postprocedural states; M54.16 Radiculopathy, lumbar region; R19.00 Intra-abdominal and pelvic swelling, mass and lump, unspecified site; L02.92 Furuncle, unspecified | CPT/HCPCS: 80053; 80061; 83036; 84443; 85025 ==

== ENCOUNTER 2025-02-18 11:37 | Emergency (ER) | payer MEDICARE, MEDICAID, SELFPAY ==
[2025-02-18] VITALS (7 sets, daily range): BP systolic 127–154; BP diastolic 99–101; PULSE 95–108; RESP 16–18; TEMP 36.7; O2SAT 92–99; BMI 50.5
--- NOTE | 2025-02-18 11:46 | XR_ITS ---
WS: [id number] Portable AP upright chest, 02/18/2025 Clinical Data: dyspnea/cough Comparison: Two-view chest, 03/15/2021 Findings: No nodules, masses or effusions are seen. The heart is enlarged because of a poor inspiratory effort. The pulmonary vascularity is not increased. No pneumonia or pneumothorax is seen. XR/XR chest 1V portable [id number] Impression: Cardiomegaly.
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
[2025-02-18 11:56] LABS: ABG PCO2 36.7 mmHg (35-45); ABG PH Result 7.43 (7.35-7.45); Alveolar-Arterial Oxygen Gradi 1.7 mmHg (5-10); Arterial Blood Gas Hematocrit 45.4 % (37-47); Base Excess ABG 0.1 mmol/L (-2.0-2.0); Blood Gas Allen Test Pos; Blood Gas Operator Identificat WALCI; Blood Gas Sample Site Radial, left; Blood Gas Sample Type Arterial; Carboxyhemoglobin 2.5 %THgb (0.4-20.1); HCO3 ABG 24.2 mmol/L (22-26); Ionized Calcium Level - ABG 1.1 mmol/L (1.1-1.4); Oxygen Device NC; Oxygen Saturation ABG 96.5; PO2 ABG 91.1 mmHg (80.0-100.0); Potassium Level - ABG 3.3 mmol/L (3.5-5.0); Total Hemoglobin 14.8 g/dL (12-16)
[2025-02-18] MEDS: ipratropium-albuterol 3 mL Neb INHALATION ×2 (12:01→12:54)
[2025-02-18 12:23] LABS: Basophils # 0.1 10^3/uL (0.0-0.1); Basophils % 0.7 %; Eosinophils # 0.2 10^3/uL (0.0-0.8); Eosinophils % 1.5 %; Hematocrit 44.7 % (36-47); Lymphocytes # 2.5 10^3/uL (0.8-4.8); Lymphocytes % 15.3 %; Mean Corpuscular HGB Conc 32.9 g/dL (30-55); Mean Corpuscular Hemoglobin 29.3 pg (27-33); Mean Platelet Volume 10.3 fL (7.4-10.4); Monocytes # 0.9 10^3/uL (0.2-0.9); Monocytes % 5.3 %; Neutrophils # 12.43 10^3/uL (1.8-7.7); Neutrophils % 76.9 %; Nucleated Red Blood Cells % 0 %; Platelet Count 354 10^3/cmm (157-399); Red Blood Count 5.02 10^6/uL (3.85-5.65); Red Cell Distribution Width 14.4 % (12.1-15.1); White Blood Count 16.16 10^3/uL (3.29-11.43)
[2025-02-18] MEDS: methylPREDNISolone sod succ 125 mg/2 mL INJ IVP (12:24)
[2025-02-18 12:48] LABS: Alanine Aminotransferase 26 U/L (0-33); Albumin Level 4.1 g/dL (3.5-5.2); Alkaline Phosphatase 154 U/L (35-105); Anion Gap 20.3 (5-19); Aspartate Amino Transferase 21 U/L (0-32); Blood Urea Nitrogen 13 mg/dL (6-20); Calcium 8.9 mg/dL (8.5-10.5); Carbon Dioxide 22 mmol/L (22-29); Chloride 99 mmol/L (98-107); Creatinine Clr Calc Pharmacy 126.9209; Globulin 3.9 g/dL (1.3-4.6); Glomerular Filtration Rate 75.9 mL/min (90-130); Glucose 252 mg/dL (65-115); Osmolality Calculated 295 mOsm/kg (285-295); Potassium 3.3 mmol/L (3.5-5.1); Sodium 138 mmol/L (136-145); Total Bilirubin 0.4 mg/dL (0.15-1.2)
--- NOTE | 2025-02-18 12:48 | PC.PHAR ---
Pt verified all her medications after presenting her list. Pt states she takes so many, she needs to look at it first. Pt took all her meds yesterday but nothing at all, today.
== END 2025-02-18 13:50 ==
PROVIDERS: Emergency Provider Family Medicine; PCP Nurse Practitioner Family
DX: T59.811A Toxic effect of smoke, accidental (unintentional), initial encounter (principal); X00.0XXA Exposure to flames in uncontrolled fire in building or structure, initial encounter; J44.1 Chronic obstructive pulmonary disease with (acute) exacerbation; Z79.84 Long term (current) use of oral hypoglycemic drugs; Z72.0 Tobacco use; E78.5 Hyperlipidemia, unspecified; E11.9 Type 2 diabetes mellitus without complications; I10 Essential (primary) hypertension
CPT/HCPCS: 36600; 71045; 80051; 80053; 82330; 82805; 85025; 94640; 96374; 99285; J2919; J9999

== ENCOUNTER → 2025-05-17 15:31 | Outpatient (BNVA) | payer MEDICARE, MEDICAID, SELFPAY | PROVIDERS: PCP Nurse Practitioner Family; Visit Provider Nurse Practitioner Family | DX: I10 Essential (primary) hypertension (principal); E11.9 Type 2 diabetes mellitus without complications; E78.5 Hyperlipidemia, unspecified | CPT/HCPCS: 80053; 80061; 83036; 84443; 85025 ==

== ENCOUNTER → 2025-09-29 13:37 | Outpatient (BNVA) | payer MEDICARE, MEDICAID, SELFPAY | PROVIDERS: PCP Nurse Practitioner Family; Visit Provider Nurse Practitioner Family | DX: E11.9 Type 2 diabetes mellitus without complications (principal) | CPT/HCPCS: 80053; 80061; 83036; 83721; 84443; 85025 ==